=== PATIENT | female | born 1955 | race Caucasian/White ===

== ENCOUNTER 2020-03-06 18:36 | Inpatient (IN) | payer BC, OTHER ==
[~2020-03-06] VITALS: Ht 152.4 cm; Wt 43.0 kg
[2020-03-06 18:39] VITALS: BP 135/76
--- NOTE | 2020-03-06 19:10 | NUR ---
pt is confused ask frequently about every min if she can have mask off.attempts to remove on her own.
[2020-03-06 19:16] LABS: ABSOLUTE NEUTROPHILS 4.7 thou/uL (1.4-8.2); BASOPHILS 0.3 % (0.0-2.0); EOSINOPHILS 0.3 % (0.0-3.0); HEMATOCRIT 35.3 % (37.0-47.0); HEMOGLOBIN 11.8 gm/dL (12.0-15.0); LYMPHOCYTES 8.4 % (24.0-44.0); MCH 31.1 pg (26.0-34.0); MCHC 33.3 g/dL (28.0-37.0); MCV 93.3 fL (80.0-100.0); PLATELET COUNT 200 thou/uL (150-400); RBC 3.79 mil/uL (4.20-5.00); RDW 15.2 % (10.5-14.5); WBC 5.6 thou/uL (4.0-11.0)
[2020-03-06 19:26] LABS: ANION GAP 6 mmol/L (7-16); APTT 27.2 Seconds (24.5-32.8); BUN 28 mg/dL (7-18); CALCIUM 8.6 mg/dL (8.5-10.1); CHLORIDE 105 mmol/L (98-107); CO2 33 mmol/L (21-32); GLUCOSE 121 mg/dL (74-106); POTASSIUM 3.3 mmol/L (3.5-5.1); PROTIME 10.5 Seconds (9.3-11.4); SODIUM 144 mmol/L (136-145)
[2020-03-06 19:31] LABS: ALBUMIN 2.7 g/dL (3.4-5.0); MAGNESIUM 1.6 mg/dL (1.8-2.4); SGOT 49 U/L (15-37); SGPT 78 U/L (30-65); TOTAL BILIRUBIN 0.5 mg/dL (0.2-1.0); TOTAL PROTEIN 5.9 g/dL (6.4-8.2); TROPONIN-I <0.06 ng/mL (<0.06)
[2020-03-06 19:37] LABS: BE(vivo) 4.9 mmol/L (-2 to +3); HCO3 29.6 mmol/L (22.0-26.0); PCO2 44.1 mmHg (35.0-45.0); PO2 71.5 mmHg (80.0-100.0); pH 7.445 (7.360-7.450); sO2 94.9 % (92.0-98.0)
[2020-03-06] MEDS ORDERED: ELIQUIS5 MG PO (21:54)
[2020-03-06] MEDS ORDERED: DECADRON6 MG PO (21:54)
[2020-03-06] MEDS ORDERED: MEMANTINE HCL10 MG PO (21:55)
[2020-03-06] MEDS ORDERED: METOPROLOL SUCC50 MG PO (21:55)
[2020-03-06] MEDS ORDERED: MELATONIN5 MG SUBLING (21:55)
[2020-03-06 21:56] LABS: URINE BILIRUBIN NEGATIVE (Negative); URINE BLOOD TRACE (Negative); URINE CLARITY CLEAR; URINE COLOR YELLOW; URINE GLUCOSE-RANDOM* NEGATIVE (Negative); URINE KETONES NEGATIVE (Negative); URINE LEUKOCYTES-REFLEX 2+ (Negative); URINE NITRITE-REFLEX POSITIVE (Negative); URINE PROTEIN (DIPSTICK) NEGATIVE (Negative); URINE SPECIFIC GRAVITY 1.015 (1.005-1.035)
[2020-03-06] MEDS ORDERED: PEPCID20 MG PO (21:56)
[2020-03-06] MEDS ORDERED: GALZIN50 MG PO (21:57)
[2020-03-06] MEDS ORDERED: GEODON40 MG PO (21:57)
[2020-03-06] MEDS ORDERED: TYLENOL325 M1 PO (21:58)
[2020-03-06] MEDS ORDERED: AMIODARONE HCL400 MG PO (21:58)
[2020-03-06] MEDS ORDERED: VITAMIN B-1100 M2 PO (21:59)
[2020-03-06] MEDS ORDERED: BUSPIRONE HCL15 MG PO (21:59)
[2020-03-06] MEDS ORDERED: VITAMIN C500 M2 PO (21:59)
[2020-03-06] MEDS ORDERED: BAYER CHEWABLE81 MG PO (21:59)
[2020-03-06] MEDS ORDERED: CLARITIN10 M3 PO (22:00)
[2020-03-06] MEDS ORDERED: CELEXA 20 MG TA20 MG PO (22:00)
[2020-03-06 22:09] VITALS: BP 144/83
[2020-03-06 22:15] LABS: BACTERIA-REFLEX >30 Many /HPF (None Seen); CASTS None Seen /LPF (None Seen); CRYSTALS None Seen /LPF (None Seen); SQUAMOUS 0-3 Few /LPF (0-3); URINE RBC 0-2 Rare /HPF (0-2); URINE WBC-REFLEX 6-15 Few /HPF (0-5)
[2020-03-06 22:20] VITALS: BP 136/78
--- NOTE | 2020-03-07 02:42 | NUR ---
CONTINUES TO GET OXYGEN OFF. DROPS INTO THE 80'S WITHOUT THE O2. HIGH 94% ON THE OXYGEN. SHE IS PULLING AT ALL MEDICAL DEVICES. BILATERAL SOFT RESTRAINTS PLACED FOR SAFETY. ORIENTED TO ROOM AND SURROUNDINGS. SHE IS CONFUSED AND IS ORIENTED TO PERSON AND PLACE ONLY. CAREPLAN STARTED. DENIES PAIN
--- NOTE | 2020-03-07 04:04 | NUR ---
COVID TEST POSITIVE FROM 03/06/20. REPORT BY NATALIE IN LAB
[2020-03-07 05:21] LABS: HEMATOCRIT 36.5 % (37.0-47.0); MCH 30.8 pg (26.0-34.0); MCHC 32.8 g/dL (28.0-37.0); MCV 93.8 fL (80.0-100.0); RBC 3.89 mil/uL (4.20-5.00); RDW 15.2 % (10.5-14.5); WBC 4.2 thou/uL (4.0-11.0)
[2020-03-07 05:31] LABS: CALCIUM 8.1 mg/dL (8.5-10.1); CREATININE 0.8 mg/dL (0.6-1.0); POTASSIUM 3.6 mmol/L (3.5-5.1)
--- NOTE | 2020-03-07 06:50 | NUR ---
KEEPING O2 ON THIS AM AT 12 LITERS HFC. LOW 90'S. O2 SAT. RESTING QUIETLY AT THIS TIME.
[2020-03-07 07:21] VITALS: BP 123/761
--- NOTE | 2020-03-07 09:38 | EKG ---
[facility] [place] [address] ELECTROCARDIOGRAM REPORT Name: KIM LE Room #: 351- ADM IN M.R.#: [id number] Admission: 03/06/20 Attend Phys: Jacoby West Discharge: Date of : 51 Report #: [id number] THIS REPORT FOR: cc: Nicole Angel,Nicole Nieto,Angel Linder MD ~ THIS REPORT FOR: //name// [facility] ED Test Date: 2020-03-06 Test Time: 19:34:56 Pat Name: KIM LE Department: Room: [facility] Gender: F Radio/Tv Technician: : 1955 Requested By: Doug Carlson Order Number: [id number] MD: Angel Mendez Measurements Intervals [place] Rate: 162 P: [place]: QRS: -34 QRSD: 93 T: 133 QT: 289 QTc: 475 Interpretive Statements Sinus rhythm Left axis deviation Nonspecific T abnrm, anterolateral leads No previous ECG available for comparison Electronically Signed On 03-07-2020 9:38:50 CDT by Angel Mendez [email or web address] <ELECTRONICALLY SIGNED> By: Angel Mendez MD 03/07/2038 33 33 Angel Mendez MD /EPI
[2020-03-07 10:59] VITALS: BP 125/65
--- NOTE | 2020-03-07 11:57 | HC ---
[facility] [address] [address] CONSULTATION Name: KIM LE Room #: 351- ADM IN M.R.#: [id number] Admission: 03/06/20 Attend Phys: Jacoby West Discharge: Date of : 51 Report #: [id number] THIS REPORT FOR: cc: Nicole Angel,Nicole Hurley,Jackson Elam MD ~ DATE OF SERVICE: 03/07/2020 INFECTIOUS DISEASE CONSULTATION ATTENDING PHYSICIAN: Jacoby West MD REASON FOR EVALUATION: COVID-19 infection complicated by pneumonitis and respiratory failure. HISTORY OF PRESENT ILLNESS: Chart reviewed, the patient examined. This is a 64-year-old woman with extensive significant medical history given her age; does have some degree of dementia as well as vasculopathy, I suspect COPD as well, who was admitted from the facility with complaints of positive COVID-19 testing. On arrival apparently, she was on room air. She has clinically worsened, now is on significant supportive oxygen. She is quite lethargic. She is unable to give any significant details of her history, has been started empirically on vancomycin and Levaquin. Urinalysis did show 16-25 white cells as well. She has apparently been taking off her oxygen. ALLERGIES: LISTED TO PENICILLINS AND MORPHINE. CURRENT MEDICATIONS: Include levofloxacin, enoxaparin, vancomycin, famotidine, dexamethasone, furosemide, Haldol, albuterol, p.r.n. analgesics and antiemetics. PAST MEDICAL HISTORY: As described above. Does have history of anxiety, depression, hypertension, obstructive sleep apnea, coronary artery disease; has cardiomyopathy, paroxysmal atrial fibrillation, post-AICD. SOCIAL HISTORY: Smokes cigarettes. FAMILY HISTORY: Noncontributory. REVIEW OF SYSTEMS: Not reliably obtained. PHYSICAL EXAMINATION: GENERAL: She is chronically ill appearing, undernourished, quite somnolent at this point, appears to be in moderate distress. VITAL SIGNS: Temperature 97.6, pulse 60, respirations 20, blood pressure is [facility] [address] [place] [address] CONSULTATION Name: KIM LE Room #: [facility] IN ..#: [id number] Admission: 03/06/20 Attend Phys: Jacoby West Discharge: Date of : 51 Report #: [id number]. SKIN: Warm, dry, no rashes. HEENT: Has nasal cannula oxygen in place. NECK: Supple. LUNGS: Scattered coarse breath sounds. HEART: Distant, regular, may have a soft systolic murmur. ABDOMEN: Soft, nontender, nondistended. EXTREMITIES: No cyanosis. GENITOURINARY: Deferred. RECTAL: Deferred. LABORATORY DATA: Blood cultures are sterile thus far. Troponin less than 0.06. Electrolytes from this morning; sodium 145, potassium 3.6, chloride 103, bicarbonate is 33, anion gap of 9, BUN and creatinine 19 and 0.8, estimated GFR of 72. CBC: White count of 4.2, H and H 12.0 and 36.5, platelets of 205. Coronavirus testing was positive. Procalcitonin of less than 0.05. Urinalysis; 6-15 white cells. Influenza antigen was negative. ProBNP elevated at 5559. Chest x-ray; moderate diffuse infiltrates; there is a question of edema. Liver function tests were otherwise unremarkable. Albumin of 2.7, total protein 5.9. ASSESSMENT: COVID-19 infection. There is significant disease burden. I think she would be a candidate for the antiviral remdesivir, consider convalescent plasma as well. We will add vitamins. She appears quite tenuous at this point and I think fairly profoundly undernourished. Overall, prognosis appears guarded. <ELECTRONICALLY SIGNED> By: Jackson Okeefe MD 03/07/20 1157 1028 1142 Jackson Okeefe MD /nt
[2020-03-07 16:47] VITALS: BP 121/69
--- NOTE | 2020-03-07 18:10 | NUR ---
ASSUMED PATIENT CARE AT 0700. AWAKE. CONFUSED AND RESTLESS PUT O2 OFF. ON RESTRAINT. OPTIFLOW 55L 75% WITH CONTINUE PULSE OX 92%. DESAT WITH EXERTION. 4300ML URINE OUTPUT. VSS. SLOWLY TOWARDS POC GOALS.
[2020-03-07 19:50] VITALS: BP 110/63
--- NOTE | 2020-03-08 04:34 | NUR ---
O2 SAT MID 90'S 0N OPTIFLOW 55 LITERS 75%. PULL OFF O2 FREQUENTLY POSSIBLE. HALDOL GIVEN X2 TIS SHIFT. EFFECTIVE FOR CONTROL OF BEHAVIOR.
[2020-03-08 05:51] VITALS: BP 106/63
[2020-03-08 07:29] VITALS: BP 117/72
[2020-03-08 07:34] LABS: ABSOLUTE NEUTROPHILS 8.6 thou/uL (1.4-8.2); BASOPHILS 0.1 % (0.0-2.0); HEMATOCRIT 40.8 % (37.0-47.0); HEMOGLOBIN 13.4 gm/dL (12.0-15.0); LYMPHOCYTES 6.4 % (24.0-44.0); MCH 30.5 pg (26.0-34.0); MCHC 32.8 g/dL (28.0-37.0); MONOCYTES 6.6 % (1.0-8.0); PLATELET COUNT 257 thou/uL (150-400); POLYS 86.9 % (36.0-66.0); RBC 4.38 mil/uL (4.20-5.00); RDW 15.6 % (10.5-14.5); WBC 9.9 thou/uL (4.0-11.0)
[2020-03-08 11:13] VITALS: BP 125/70
[2020-03-08 13:26] LABS: ALBUMIN 2.8 g/dL (3.4-5.0); CREATININE 0.6 mg/dL (0.6-1.0); DIRECT BILIRUBIN 0.1 mg/dL (<0.1-0.2); TOTAL BILIRUBIN 0.8 mg/dL (0.2-1.0); TOTAL PROTEIN 5.7 g/dL (6.4-8.2)
[2020-03-08 15:18] VITALS: BP 111/67
[2020-03-08 15:56] VITALS: BP 139/73
[2020-03-08 17:30] LABS: ABSOLUTE NEUTROPHILS 11.1 thou/uL (1.4-8.2); BASOPHILS 0.6 % (0.0-2.0); HEMATOCRIT 39.9 % (37.0-47.0); HEMOGLOBIN 12.9 gm/dL (12.0-15.0); LYMPHOCYTES 2.4 % (24.0-44.0); MCH 30.3 pg (26.0-34.0); MCHC 32.3 g/dL (28.0-37.0); MCV 94.1 fL (80.0-100.0); MONOCYTES 3.4 % (1.0-8.0); PLATELET COUNT 325 thou/uL (150-400); POLYS 93.6 % (36.0-66.0); RBC 4.24 mil/uL (4.20-5.00); RDW 15.4 % (10.5-14.5); WBC 11.9 thou/uL (4.0-11.0)
[2020-03-08 17:40] LABS: CALCIUM 8.7 mg/dL (8.5-10.1); POTASSIUM 3.2 mmol/L (3.5-5.1)
--- NOTE | 2020-03-08 19:10 | NUR ---
ASSUMED PATIENT CARE AT 0700. AWAKE. ON OPTLOW 55L/75%. PATIENT STILL PULL OFF O2 TUBE. ON RESTRAINT. TOLERATED NECTOR LIQUID AND PUDDING. VSS. WILL KEEP MONITOR.
[2020-03-08 19:47] VITALS: BP 131/72
[2020-03-09 04:49] VITALS: BP 134/70
--- NOTE | 2020-03-09 05:35 | NUR ---
Pt. very anxious at beginning of shift. Keeps taking off Optiflow despite being in soft restraint. Reposition prn and pt. frequently reoriented. Haldol prn given with some help. Slept intermittently during the night. O2 sat in the low to mid 90's when awake and anxious then mid to upper 90's when sleeping and calm. Cont. on enhanced precaution , afebrile. Bed alarm on for safety.
[2020-03-09 06:49] LABS: ALBUMIN 2.5 g/dL (3.4-5.0); CREATININE 0.8 mg/dL (0.6-1.0); DIRECT BILIRUBIN 0.2 mg/dL (<0.1-0.2); TOTAL BILIRUBIN 0.6 mg/dL (0.2-1.0); TOTAL PROTEIN 5.5 g/dL (6.4-8.2)
[2020-03-09 08:45] VITALS: BP 115/69
[2020-03-09 11:26] VITALS: BP 146/78
[2020-03-09 11:48] LABS: MAGNESIUM 1.8 mg/dL (1.8-2.4)
[2020-03-09 14:59] VITALS: BP 127/71
--- NOTE | 2020-03-09 18:13 | NUR ---
PT CARE ASSUMED AT 0700, UP START OF MY SHIFT, PT SEEMED CALM, ALERT TO SELF, ABLE TO FOLLWO IMPLE COMMANDS. MID SHIFT, PT BECAME MORE RESTLESS, TAKING OPTIFLOW DESPITE BILATERAL SOFT RESTRAINTS, PT REOIENTED FREQUENTLY. PT GURROLA CATHETER IN PLACE, PATENT AND SECURED. PT CALLED AND UPDATED ABOUT PT CARE, HE WANTED TO TALK TO A DOCTOR. DR. MARCELA EAST, GAVE HIM HIS NUMBER. FALL PRECAUTIONS IN PLACE. WILL CONTINUE TO [id number].
[2020-03-09 20:04] VITALS: BP 142/82
[2020-03-09 23:26] VITALS: BP 146/76
[2020-03-10 03:47] VITALS: BP 150/60
--- NOTE | 2020-03-10 05:49 | NUR ---
PT CONFUSED . ATTEMPTS TO TAKE OFF O2 . RESTRAINTS ON BILATERALLY. SHE HAS PULLED OFF O2 X2 TONIGHT. TYLENOL GIVEN FOR PAIN. SHE SLEPT WELL AFTER TYULENOL AND RT GAVE A BREATHING TREATMENT. SATS WERE 85% . O2 INCREASED PER RT AND TX GIVEN, BED DOWN CALL LIGHT IN REACH. BED ALARM ON.
[2020-03-10 06:16] LABS: HEMATOCRIT 37.6 % (37.0-47.0); HEMOGLOBIN 12.1 gm/dL (12.0-15.0); MCH 30.3 pg (26.0-34.0); MCHC 32.3 g/dL (28.0-37.0); MCV 93.9 fL (80.0-100.0); RBC 4.01 mil/uL (4.20-5.00); RDW 15.5 % (10.5-14.5); WBC 10.2 thou/uL (4.0-11.0)
[2020-03-10 06:27] LABS: CALCIUM 9.1 mg/dL (8.5-10.1); CREATININE 0.9 mg/dL (0.6-1.0)
[2020-03-10 06:31] LABS: POTASSIUM 2.7 mmol/L (3.5-5.1)
[2020-03-10 06:33] LABS: ALBUMIN 2.7 g/dL (3.4-5.0); CREATININE 0.9 mg/dL (0.6-1.0); DIRECT BILIRUBIN 0.2 mg/dL (<0.1-0.2); TOTAL BILIRUBIN 0.5 mg/dL (0.2-1.0); TOTAL PROTEIN 5.7 g/dL (6.4-8.2)
[2020-03-10 07:19] VITALS: BP 156/79
[2020-03-10 11:06] VITALS: BP 137/79
[2020-03-10 15:40] VITALS: BP 135/75
--- NOTE | 2020-03-10 16:45 | NUR ---
INITIAL ASSESSMENT: Received consult. SARAH reviewed chart and spoke with nursing and attending physician. Pt was admitted from [facility] due to COVID-19. Pt is in Enhanced Isolation. Pt is afebrile and is on optiflow. Pt is IV lasix/IV abx. Pt is completing course of Remdesivir. Pt is in restraints. SARAH spoke with pt's , Mu, via phone. Introduced role of SARAH. Pt has been at [facility] for about a month. Pt is in LTC at the facility. Pt was at [facility] prior to admission to [facility]. Pt's thinks that pt got COVID at [facility], which has many cases. Plan is for pt to return to [facility] when medically stable. SARAH updated Rhina at [facility]. Will fax clinical info for [facility] for review. Pt's spouse is requesting to speak with hospitalist and extrusion press supervisor. SARAH is following to assist as needed with discharge planning.
--- NOTE | 2020-03-10 18:16 | NUR ---
PT HAS BEED CALM SIBCE START OF SHIFT, SLEEPY BUT EASILY WOKEN UP. PT DENIES ANY PAIN, NAUSEA AND VOMITTING. PT CONTINUES TO HAVE RESTRAINT ON DUE TO MULTIPLE ATTEMPTS TO TAKE OFF HER OXYGEN. PT REORIENTED. PT ATE MOST OF MEALS TODAY. FOLET CATHETER IN PLACE AND PATENT. FALL PRECAUTIONS IN PLACE. CALLED AND UIPDATED ABOUT PT CARE. WILL CONTINUE TO MONITOR.
[2020-03-10 20:52] VITALS: BP 137/77
[2020-03-10 21:00] LABS: BE(vivo) 13.7 mmol/L (-2 to +3); HCO3 38.8 mmol/L (22.0-26.0); pH 7.508 (7.360-7.450); sO2 94.8 % (92.0-98.0)
--- NOTE | 2020-03-11 05:10 | NUR ---
PT IN RESTRAINTS SHE WILL PULL OPIFLOW OFF AND DESAT INTO 80'S. FOLLOWING POC WITH Q2 RESTRAINT CHECKS. PT SOMETIME RESTLESS AND SAYS, "I JUST WANT TO ." REDIRECT AND TELL HER ÁNGEL LOVES HER, HE CALLS TO CHECK FREQUENTLY OVER SHIFT. POC WITH IVPB ANTIBIOTICS. FALL AND ISOLATION PRECAUTIONS IN PLACE.
[2020-03-11 06:31] LABS: HEMATOCRIT 43.1 % (37.0-47.0); HEMOGLOBIN 13.7 gm/dL (12.0-15.0); MCH 30.2 pg (26.0-34.0); MCHC 31.8 g/dL (28.0-37.0); RBC 4.54 mil/uL (4.20-5.00); RDW 15.8 % (10.5-14.5); WBC 15.4 thou/uL (4.0-11.0)
[2020-03-11 06:42] LABS: CALCIUM 9.1 mg/dL (8.5-10.1); CREATININE 0.8 mg/dL (0.6-1.0); POTASSIUM 3.3 mmol/L (3.5-5.1)
[2020-03-11 06:44] LABS: ALBUMIN 2.9 g/dL (3.4-5.0); DIRECT BILIRUBIN 0.3 mg/dL (<0.1-0.2); TOTAL BILIRUBIN 0.8 mg/dL (0.2-1.0); TOTAL PROTEIN 5.9 g/dL (6.4-8.2)
[2020-03-11 07:50] VITALS: BP 145/82
[2020-03-11 11:09] VITALS: BP 140/75
--- NOTE | 2020-03-11 14:35 | NUR ---
SW reviewed chart and spoke with nursing and attending physician. Pt remains in Enhanced Isolation due to COVID-19. Pt is afebrile and requiring optiflow. Pt is on IV abx, IV lasix and IV steroids. Pt has completed course of Remdesivir. turnaround planner faxed clinical updates to [facility] for review. SARAH is following to assist as needed with discharge planning.
[2020-03-11 15:51] LABS: HCO3 38.3 mmol/L (22.0-26.0); PCO2 50.9 mmHg (35.0-45.0); PO2 70.4 mmHg (80.0-100.0); pH 7.494 (7.360-7.450); sO2 95.1 % (92.0-98.0)
[2020-03-11 15:55] VITALS: BP 137/78
--- NOTE | 2020-03-11 17:38 | NUR ---
[facility] RECEIVED CONFIRMATION AND LEFT MSG WITH PAKO IN ADM DP TO FOLLOW.
--- NOTE | 2020-03-11 18:43 | NUR ---
PT CARE ASSUMED TA 0700, PT ALERT AND ORIENTED X3, CONFUSION AT TIMES. DENIES CHEST PAIN, NAUSEA AND VOMITTING. PT WAS CALM MOST OF THE DAY, BUT TRIEND TO TAKE HER OXYGEN OFF. REORIENTED PT. PT REPOSITIONED EVERY 2 HOURS. BARELY ATE HER FOOD, FLUIDS ENCOURAGED. GURROLA CATHETER IN PLACE. FALL PREWCAUTIONS IN PLACE. CALLED AND UPDATED ABOUT CARE. WILL CONTINUE TO MONITOR.,
[2020-03-11 19:41] VITALS: BP 133/80
[2020-03-12 03:53] VITALS: BP 129/72
[2020-03-12 05:27] LABS: HCO3 33.3 mmol/L (22.0-26.0); PCO2 44.3 mmHg (35.0-45.0); PO2 62.6 mmHg (80.0-100.0); pH 7.494 (7.360-7.450); sO2 93.5 % (92.0-98.0)
[2020-03-12 06:17] LABS: HEMATOCRIT 36.8 % (37.0-47.0); MCHC 31.8 g/dL (28.0-37.0); MCV 94.4 fL (80.0-100.0); RBC 3.9 mil/uL (4.20-5.00); RDW 15.6 % (10.5-14.5); WBC 13.3 thou/uL (4.0-11.0)
[2020-03-12 06:18] LABS: HEMOGLOBIN 11.7 gm/dL (12.0-15.0)
[2020-03-12 06:31] LABS: CALCIUM 8.6 mg/dL (8.5-10.1); CREATININE 0.7 mg/dL (0.6-1.0)
[2020-03-12 06:44] LABS: POTASSIUM 2.7 mmol/L (3.5-5.1)
[2020-03-12 07:17] VITALS: BP 134/79
[2020-03-12 15:05] VITALS: BP 158/85
--- NOTE | 2020-03-12 16:10 | NUR ---
PT REMAINS RESTLESS AND CONFUSED. STILL REQUIRING HIGH O2, ON OPTIFLOW AT 50L, 60% FIO2. BILATERAL WRIST RESTRAINTS CONTINUED D/T DISCONTINUATION OF MEDICAL DEVICES. VSS. VERY POOR APPETITE. POOR ORAL INTAKE. GURROLA PATENT. K+ CRITICAL AT 2.7, REPLACED WITH 40 MEQ. RECHECK 3.6. WILL CONTINUE TO MONITOR.
[2020-03-12 19:23] VITALS: BP 153/89
[2020-03-13] VITALS (26 sets, daily range): BP systolic 97–137; BP diastolic 53–77
--- NOTE | 2020-03-13 00:27 | NUR ---
PRESSURE AREA AT UPPER LIP NOTICED BY RT. REMOVED OPTIFLOW, AND PLACED VENTI MASK AT 50%. KEEPING O2 SATS AT 96%. NO PULLING AT RESTRAINTS AT THIS TIME OR OXYGEN. REMOVED RESTRIANTS NOW. PT IS RESTING QUIETLY. HALDOL EFFECTIVE FOR CONTROL OF RESTLESSNESS.
--- NOTE | 2020-03-13 05:48 | NUR ---
RESTING QUIELTY TONIGHT. ONLY BECOMES A BIT RESTLESS WITH CARES/TREATMENTS. CONT PULSE OX, O2 LEVELS STAYING IN THE MID 90'S ON VENETI MASK AT 40%. OPTIFLOW DISCONTIUED: PLACING PRESSURE ON UPPER LIP. CONTINUES ON IV FLUIDS.
[2020-03-13 06:18] LABS: HEMATOCRIT 37.8 % (37.0-47.0); HEMOGLOBIN 12.3 gm/dL (12.0-15.0); MCH 30.8 pg (26.0-34.0); MCHC 32.6 g/dL (28.0-37.0); MCV 94.6 fL (80.0-100.0); RDW 15.3 % (10.5-14.5); WBC 12.3 thou/uL (4.0-11.0)
[2020-03-13 06:32] LABS: CALCIUM 8.7 mg/dL (8.5-10.1); CREATININE 0.6 mg/dL (0.6-1.0); POTASSIUM 3.2 mmol/L (3.5-5.1)
[2020-03-13 11:44] LABS: BE(vivo) 10.2 mmol/L (-2 to +3); HCO3 34.9 mmol/L (22.0-26.0); PCO2 46.7 mmHg (35.0-45.0); PO2 66.8 mmHg (80.0-100.0); pH 7.491 (7.360-7.450); sO2 94.4 % (92.0-98.0)
--- NOTE | 2020-03-13 12:54 | NUR ---
SARAH reviewed chart and spoke with nursing and attending physician. Pt remains in Enhanced Isolation due to COVID-19. Pt is afebrile and on IV abx. Pt is requiring ventimask. Pt may need TPN/dobhoff placed. Pt transferred to ICU earlier today. SARAH updated Rhina at [facility]. No weekend discharge planned. SARAH is following to assist as needed with discharge planning.
--- NOTE | 2020-03-13 12:56 | NUR ---
patient tolerated on vent mask. transfered patient to icu at [address] leanna rodriguez. update with .
--- NOTE | 2020-03-13 13:43 | NUR ---
PER DEPT POLICY, PT TO BE PLACED ON HOLD FROM P.T. S/P TX TO ICU PER DR. MEDRANO. REQUEST NEW P.T. ORDERS ONCE PT IS DEEMED APPROPRIATE FOR THERAPEUTIC MOBILITY.
[2020-03-13 13:54] LABS: MAGNESIUM 2.1 mg/dL (1.8-2.4); PHOSPHORUS 3.1 mg/dL (2.5-4.9)
--- NOTE | 2020-03-13 14:05 | NUR ---
chart review. cm unable to visit with terra rt on conserving ppe. no weekend dc. will cont following as needed for dc needs.
--- NOTE | 2020-03-13 14:46 | NUR ---
PT ARRIVED FROM 3W ACCOMPANIED BY NURSING STAFF. PT DROWSY, OPENS EYES TO VERBAL STIMULI. PT VERY IMPULSIVE AND CONTINUALLY PULLING VENTI MASK OFF. WHILE PT'S O2 OFF PT DESATS TO 88-89. CENTRAL LINE PLACED BY IV TEAM. DR MEDRANO CALLED AND UPDATED AT [address] DOBHOF AND PL[address] RESTRAINS GIVEN. PT HAS BEEN HEMODYNAMICALLY STABLE WHILE IN ICU. WILL CONTINUE TO MONITOR.
[2020-03-13 16:15] LABS: BE(vivo) 9.5 mmol/L (-2 to +3); HCO3 34.2 mmol/L (22.0-26.0); PCO2 46.5 mmHg (35.0-45.0); PO2 60.2 mmHg (80.0-100.0); pH 7.485 (7.360-7.450); sO2 92.6 % (92.0-98.0)
--- NOTE | 2020-03-13 21:00 | NUR ---
LATE ENTRY. 6FRTLCL PLACED RT IJ. CXR REVEALED THE TIP AT THE [facility] AT 1445 AND LINE RELEASED TO RN FOR USE.
[2020-03-14] VITALS (49 sets, daily range): BP systolic 75–140; BP diastolic 44–79
[2020-03-14 04:45] LABS: CALCIUM 8.1 mg/dL (8.5-10.1); CREATININE 0.6 mg/dL (0.6-1.0); PHOSPHORUS 2.4 mg/dL (2.5-4.9); TOTAL BILIRUBIN 0.6 mg/dL (0.2-1.0); TOTAL PROTEIN 4.6 g/dL (6.4-8.2)
[2020-03-14 04:47] LABS: POTASSIUM 2.9 mmol/L (3.5-5.1)
[2020-03-14 04:51] LABS: BE(vivo) 8.1 mmol/L (-2 to +3); HCO3 32.1 mmol/L (22.0-26.0); PCO2 42.4 mmHg (35.0-45.0); PO2 60.8 mmHg (80.0-100.0); pH 7.497 (7.360-7.450); sO2 93.1 % (92.0-98.0)
[2020-03-14 05:11] LABS: ABSOLUTE NEUTROPHILS 11.6 thou/uL (1.4-8.2); BASOPHILS 0.1 % (0.0-2.0); EOSINOPHILS 0.1 % (0.0-3.0); HEMATOCRIT 33.6 % (37.0-47.0); LYMPHOCYTES 9.1 % (24.0-44.0); MCH 30.6 pg (26.0-34.0); MCHC 32.8 g/dL (28.0-37.0); MCV 93.4 fL (80.0-100.0); MONOCYTES 7.2 % (1.0-8.0); PLATELET COUNT 269 thou/uL (150-400); POLYS 83.5 % (36.0-66.0); RBC 3.59 mil/uL (4.20-5.00); RDW 15.3 % (10.5-14.5); WBC 13.8 thou/uL (4.0-11.0)
--- NOTE | 2020-03-14 19:15 | NUR ---
Pt has dozed intermittently today. Moans and will vocalze a few words or a sentence. Sinus rhythm. Maintained NPO. Low grade temperature. Ventimask at 35%. Nasal cannula not utilized due to imparied skin intergrity under nose. and above upper lip. Catheter did leak with urine noted on pad. May require replacing cather if leaking continues. Maintained in isolation for COVID.
[2020-03-15] VITALS (25 sets, daily range): BP systolic 78–146; BP diastolic 34–83
[2020-03-15 05:16] LABS: CALCIUM 8.4 mg/dL (8.5-10.1); CREATININE 0.6 mg/dL (0.6-1.0); MAGNESIUM 2.1 mg/dL (1.8-2.4); PHOSPHORUS 2.8 mg/dL (2.5-4.9); POTASSIUM 4.1 mmol/L (3.5-5.1)
--- NOTE | 2020-03-15 08:20 | NUR ---
Pt leaking urine around catheter. Catheter removed and new 16 north korean kinney catheter inserted. Immediate return of cloudy yellow urine with sediment.
--- NOTE | 2020-03-15 19:15 | NUR ---
Pt confused throughout the day with periods of restlessness. Discussed with Dr Han that pt not currently able to take home medications due to NPO status and no feeding tube. Dr Han discussed consulting Psyc phsician. No order received. Maintained on 35% ventimask. TPN continues for nutritional support. Pt's , Mu, called in for status report. Maintained in isolation with COVID precations. Report given to RN assuming care.
[2020-03-16] VITALS (33 sets, daily range): BP systolic 81–136; BP diastolic 45–81
[2020-03-16 06:04] LABS: CALCIUM 8.2 mg/dL (8.5-10.1); CREATININE 0.5 mg/dL (0.6-1.0); MAGNESIUM 2.1 mg/dL (1.8-2.4); PHOSPHORUS 2.5 mg/dL (2.5-4.9); POTASSIUM 4.2 mmol/L (3.5-5.1)
[2020-03-16 07:35] LABS: ABSOLUTE NEUTROPHILS 12.1 thou/uL (1.4-8.2); BASOPHILS 0.2 % (0.0-2.0); HEMOGLOBIN 10.9 gm/dL (12.0-15.0); LYMPHOCYTES 7.6 % (24.0-44.0); MCH 30.1 pg (26.0-34.0); MCHC 32.1 g/dL (28.0-37.0); MONOCYTES 6.3 % (1.0-8.0); PLATELET COUNT 240 thou/uL (150-400); POLYS 85.9 % (36.0-66.0); RBC 3.62 mil/uL (4.20-5.00); WBC 14.1 thou/uL (4.0-11.0)
--- NOTE | 2020-03-16 07:46 | NUR ---
PT NOTED TO BE BLEEDING AROUND THE CHEST TUBE INSERTION SITE, DRESSING SATURATED AND CHANGED TWICE. NO CHANGE IN PT RESPIRATORY STATUS. DR MEDRANO NOTIFIED, ORDERS TO HOLD LOVENOX FOR A DAY RECEIVED, AND TO REINFORCE PRESSURE DRESSING AN NEEDED.CXR AND AM LABS TAKEN. WILL CONTINUE TO MONITOR PT.
--- NOTE | 2020-03-16 09:00 | NUR ---
ASSUMMED CARE AT 0700 THIS AM FROM NIGHT NURSE PATIENCE RN. RT CHEST TUBE DRESSING BLOODY. DR CHAUDHARY HERE AND INFORMED OF BLEEDING FROM CHEST TUBE SITE. ALSO INFORMED OF SERUM SODIUM LEVEL OF 135, AND D5W INFUSING. NO ORDERS NOTED.
--- NOTE | 2020-03-16 10:00 | NUR ---
DR LOVELL IN TO SEE PATIENT, INFORMED OF BLEEDING FROM CHEST TUBE SITE AND SERUM SODIUM. WILL PUT ORDERS IN.
--- NOTE | 2020-03-16 10:30 | NUR ---
PATIENT'S CALLED IN AND UPDATED ON PATIENT'S STATUS. PATIENT PULLING OFF O2 AND DESATING INTO THE MID 80'S. VENTIMASK INCREASED TO 50% AND SAT RETURNED TO THE MID TO LOWER 90'S. PATIENT REMAINS CONFUSED AND AGGITATED. DR LOVELL ALSO INFORMED OF BP WHEN HE ROUNDED, AND THAT HALDOL HAD BEEN GIVEN EARLIER.
--- NOTE | 2020-03-16 12:00 | NUR ---
RT CHEST TUBE DRESSING SATURATED WITH CLOTS AND BLOOD ON GOWN. EST KERI 200 ML. BP IN THE 80'S. H/H AND PT/PTT DRAWN. RESULTS PENDING. PATIENT REPOSITIONED.
--- NOTE | 2020-03-16 12:15 | NUR ---
chart review. unable to visit with terra rt [facility]erve on ppe. still requiring chest tube, tpn for nutritional needs. cm spoke with spouse lisha, still hopeful she starts to pull through, monday a better day to reach out rt off day for work. nurse said she had little improvement. thank you for calling per lisha. will cont following as needed for dc needs.
[2020-03-16 12:19] LABS: HEMATOCRIT 33.9 % (37.0-47.0); HEMOGLOBIN 11.2 gm/dL (12.0-15.0)
[2020-03-16 12:36] LABS: APTT 27.4 Seconds (24.5-32.8)
--- NOTE | 2020-03-16 16:23 | NUR ---
CHEST TUBE DRESSING IS DRY AND INTACT. H/H STABLE. OCC SITTING UP IN BED, WILL ANSWER SIMPLE QUESTIONS CONCERNING PAIN BUT WILL NOT FOLLOW ANY COMMANDS. MONITOR SR IN THE 80'S WITH OCC PVC NOTED. BP IMPROVED WITH MEAN ARTERIAL PRESSURE GREATER THAN 60. URINE OUTPUT GREATER THAN 50 ML/HR. REMAINS NPO. REASSURANCE GIVEN TO PATIENT. FENTANYL GIVEN FOR PAIN SLEEPING AT INTERVALS.
--- NOTE | 2020-03-16 17:45 | NUR ---
SPOKE WITH PATIENT'S BY PHONE. UPDATED ON 'S STATUS AND REASSURANCE GIVEN. PATIENT HAS INTERMITTENT BRIEF PERIODS WHERE SHE WILL RESPOND TO SIMPLE QUESTIONS, BUT THEN IS RESTLESS A FEW MINUTES LATER, UNCOOPERATIVE. CHEST TUBE DRESSING IS C/D/I. O2 REMAINS AT 50% SHE WILL TAKE O2 OFF AND DESATES INTO THE MID 80'S. SLOWLY PROGRESSING TOWARDS OUTCOME GOALS.
[2020-03-17] VITALS (32 sets, daily range): BP systolic 71–125; BP diastolic 37–72
[2020-03-17 04:43] LABS: BE(vivo) -0.4 mmol/L (-2 to +3); HCO3 23.5 mmol/L (22.0-26.0); PCO2 35.6 mmHg (35.0-45.0); PO2 98.5 mmHg (80.0-100.0); pH 7.437 (7.360-7.450); sO2 97.7 % (92.0-98.0)
[2020-03-17 05:34] LABS: ABSOLUTE NEUTROPHILS 15.3 thou/uL (1.4-8.2); BASOPHILS 0.1 % (0.0-2.0); HEMATOCRIT 28.9 % (37.0-47.0); HEMOGLOBIN 9.4 gm/dL (12.0-15.0); MCH 30.3 pg (26.0-34.0); MCHC 32.4 g/dL (28.0-37.0); MCV 93.7 fL (80.0-100.0); MONOCYTES 6.6 % (1.0-8.0); PLATELET COUNT 231 thou/uL (150-400); POLYS 86.3 % (36.0-66.0); RBC 3.09 mil/uL (4.20-5.00); WBC 17.7 thou/uL (4.0-11.0)
[2020-03-17 05:44] LABS: ALBUMIN 1.9 g/dL (3.4-5.0); CALCIUM 7.9 mg/dL (8.5-10.1); CREATININE 0.6 mg/dL (0.6-1.0); MAGNESIUM 2.1 mg/dL (1.8-2.4); PHOSPHORUS 2.9 mg/dL (2.5-4.9); POTASSIUM 4.9 mmol/L (3.5-5.1); TOTAL BILIRUBIN 0.4 mg/dL (0.2-1.0); TOTAL PROTEIN 4.5 g/dL (6.4-8.2)
--- NOTE | 2020-03-17 05:56 | NUR ---
This RN to beside at 1900 last evening. Patient remained on 15L & 50% on the venturi mask all night. Vital signs stable. Patient restless throughout night and is only alert to self. One PRN dose of haldol was given. Right chest tube put on 30mL last night. No tidaling or air leak, dressing clean dry and intact. Restraints in place. Strict NPO. Patient still requiring heavy monitoring and is therefore not progressing towards goals.
--- NOTE | 2020-03-17 09:20 | NUR ---
BP LOW, SEE VSS. DR. DELACRUZ HERE. ORDERS GIVEN. NS FLUID BOLUS STARTED. MD STATES TO NOFIFY DR. LOVELL IF BP DOES NOT COME UP AND POSSIBLY START DOPAMINE. WILL CONTINUE TO MONITOR.
--- NOTE | 2020-03-17 09:30 | NUR ---
DR. LOVELL HERE. UPDATE GIVEN. MD WILL TALK TO PT FAMILY REGARDING CODE STATUS.
--- NOTE | 2020-03-17 10:01 | NUR ---
DR. CHAUDHARY HERE. UPDATE GIVEN. REPORTED LOW URINE OUTPUT AND HYPOTENSION. FLUID BOLUS IN PROGRESS. ORDERS GIVEN.
--- NOTE | 2020-03-17 12:00 | NUR ---
cm notified by bedside nurse that lisha say doesnt have code to get information and wanted cm to reach out to spouse. cm passed on that would call spouse after cm has meeting today.
--- NOTE | 2020-03-17 15:04 | NUR ---
[facility] SPOKE WITH SIMEON IN ADM SHE RECEIVED UPDATE. DP TO FOLLOW.
--- NOTE | 2020-03-17 16:21 | NUR ---
[facility] SPOKE WITH PAKO IN ADM SHE RECEIVED UPDATE.
--- NOTE | 2020-03-17 17:10 | NUR ---
Pt down to 35%. Tolorating well. Remains NPO. Agitated most of the time. Haldol x 1 this am. Fentanyl x 1. Hypotensive this am, fluid bolus and albumin given with good results. Urine output better now ? blockage this am.
[2020-03-18] VITALS (21 sets, daily range): BP systolic 85–125; BP diastolic 37–66
[2020-03-18 05:49] LABS: CALCIUM 8.3 mg/dL (8.5-10.1); CREATININE 0.6 mg/dL (0.6-1.0); MAGNESIUM 1.8 mg/dL (1.8-2.4); PHOSPHORUS 3.1 mg/dL (2.5-4.9); POTASSIUM 4.8 mmol/L (3.5-5.1)
--- NOTE | 2020-03-18 06:30 | NUR ---
NO RESTLESS EPISODES NOTED THIS SHIFT, OCCASIONALLY INTERACTS WITH NURSING. DOES NOT FOLLOW COMMANDS, INTERMITTENTLY ANSWERS QUESTIONS IN A WAY THAT IS UNDERSTANDABLE, WORDS ARE GARBLED.
--- NOTE | 2020-03-18 14:00 | NUR ---
LEFT MESSAGE WTIH PT . I KEEP MISSING HIS CALL. AWAITING CALL BACK.
--- NOTE | 2020-03-18 14:33 | NUR ---
PT CRAWLING OUT OF BED, UNDISTINQUISABLE WORDS. SOME WORDS MAKING SENSE BUT NOT FOLLOWING ANY COMMANDS.
--- NOTE | 2020-03-18 18:17 | NUR ---
PT CURRENTLY ON ROOM AIR. RESTING POST FENTANYL. + LIQUID STOOLS. WILL PUT RECTAL TUBE IN NEXT TIME. RECTAL TUBE PLACED. CHEST TUBE TO WATER SEAL.
[2020-03-19] VITALS (34 sets, daily range): BP systolic 78–121; BP diastolic 37–74
--- NOTE | 2020-03-19 08:55 | NUR ---
report received from ARLEEN Russell at shift change. received n-95 mask for provision of pt care. Dr. Sim present.
--- NOTE | 2020-03-19 18:45 | NUR ---
ROOM AIR, RESTRAINTS DC'D. FENTANYL IV GIVEN X 1 FOR RESTLESSNESS, DISCOMFORT TODAY. DR. CHAUDHARY PRESENT. DC'D R PCT WITH DRESSING OF OIL EMULSION GUAZE, 4X4'S AND SURGICAL FOAM TAPE APPLIED. DR. CHAUDHARY DETERMINED, PT DOESN'T NEED TO BE NPO. SPEECH PRESENT, PERFORMED SWALLOW STUDY, DIET ORDERED. AT 1650, REPORT GIVEN TO ARLEEN ARDON RECEIVING UPON PT TRANSFER TO FLOOR. AT 1815, RETURNED CALL- TO ÁNGEL MIMI, . UPDATED ON PT STATUS/PROGRESS AND HER TRANSFER TO ROOM 360. PT PARTIALLY REMOVED/LOOSENED RIJ TRIPLE LUMEN DRESSING. DRESSING REAPPLIED. HAD LARGE STOOL, CLEANED. TRANSFERRED IN BED WITH CAPTURE MANAGER AND O2 TO ROOM 360.
[2020-03-20 04:46] VITALS: BP 100/71
[2020-03-20 06:01] LABS: CALCIUM 8.2 mg/dL (8.5-10.1); CREATININE 0.5 mg/dL (0.6-1.0); MAGNESIUM 1.9 mg/dL (1.8-2.4); PHOSPHORUS 3.1 mg/dL (2.5-4.9); POTASSIUM 4.1 mmol/L (3.5-5.1)
--- NOTE | 2020-03-20 06:35 | NUR ---
PT TRANSFERRED BACK TO 3w FROM ICU. RESTRAINTS IN PLACE PT WILL REMOVE TELE, OXYGEN, AND PULL AT PICC. PT HAS HEALING WOUND ON UPPER LIP. PT POSITIVE FOR COVID. FOLLOWING POC WITH TPN, IVPB ANTIBIOTICS AND ASORBIC ACID. VSS OVERNIGHT.
[2020-03-20 08:39] VITALS: BP 123/40
[2020-03-20 11:20] VITALS: BP 101/44
--- NOTE | 2020-03-20 14:11 | NUR ---
SARAH reviewed chart and spoke with nursing and attending physician. Pt remains in Enhanced Isolation due to COVID-19. Pt was transferred to 3W from ICU. Pt is in restraints due to pulling at her lines. Pt is on TPN. No weekend discharge anticipated. SARAH spoke with pt's spouse, Mu, to provide update. Mu is hoping pt will be ready to discharge back to [facility] next week. SARAH provided update to Rhina at [facility]. Will fax clinical/therapy updates to the facility on Monday for review. PT/OT to be reordered when pt is able to participate. SARAH is following to assist as needed with discharge planning.
[2020-03-20 15:19] VITALS: BP 112/59
--- NOTE | 2020-03-20 18:32 | NUR ---
ASSUMED PATIENT CARE AT 0700. AWAKE. POOR APPETITE. RESTLESS. ON RESTRAINT. TOLERTAED ON RA. 96% ON RA. SOLWLY TOWARDS POC GOALS.
[2020-03-20 19:34] VITALS: BP 128/72
[2020-03-21 04:14] VITALS: BP 127/68
[2020-03-21 08:06] VITALS: BP 139/69
[2020-03-21 10:38] LABS: ALBUMIN 2.4 g/dL (3.4-5.0); CALCIUM 8.7 mg/dL (8.5-10.1); CREATININE 0.6 mg/dL (0.6-1.0); MAGNESIUM 1.7 mg/dL (1.8-2.4); PHOSPHORUS 3.6 mg/dL (2.5-4.9); POTASSIUM 4.8 mmol/L (3.5-5.1)
[2020-03-21 11:49] VITALS: BP 111/53
[2020-03-21 15:50] VITALS: BP 117/59
--- NOTE | 2020-03-21 19:21 | NUR ---
RN ASSUMED PT'S CARE AT 0700AM, PT KNOWS HER NAME AND BIRTHDAY, PT CAN FOLLOW SOME COMMANDS, BUT PT IS CONFUSED , SHE STILL TRY TO REMOVE LINES AND GETS OUT HER BED, PT IS ON BOTH WRIST RESTRAINTS, PT HAS POOR EATING AND DRINKING, PT IS CONTINUING TPN AT 65ML/HR, PT'S VS ARE STABLE.
[2020-03-21 20:48] VITALS: BP 132/70
[2020-03-22 04:00] VITALS: BP 94/50
[2020-03-22 06:04] LABS: ABSOLUTE NEUTROPHILS 13.3 thou/uL (1.4-8.2); BASOPHILS 0.1 % (0.0-2.0); HEMOGLOBIN 9.1 gm/dL (12.0-15.0); LYMPHOCYTES 6.7 % (24.0-44.0); MCH 30.8 pg (26.0-34.0); MCHC 32.7 g/dL (28.0-37.0); MCV 94.4 fL (80.0-100.0); MONOCYTES 6.4 % (1.0-8.0); PLATELET COUNT 229 thou/uL (150-400); POLYS 86.8 % (36.0-66.0); RBC 2.97 mil/uL (4.20-5.00); RDW 15.5 % (10.5-14.5); WBC 15.3 thou/uL (4.0-11.0)
[2020-03-22 06:28] LABS: CALCIUM 8.1 mg/dL (8.5-10.1); CREATININE 0.6 mg/dL (0.6-1.0); MAGNESIUM 1.7 mg/dL (1.8-2.4); PHOSPHORUS 3.9 mg/dL (2.5-4.9); POTASSIUM 4.8 mmol/L (3.5-5.1)
[2020-03-22 07:29] VITALS: BP 101/59
[2020-03-22 11:26] VITALS: BP 91/57
[2020-03-22 15:16] VITALS: BP 94/56
--- NOTE | 2020-03-22 18:32 | NUR ---
RN ASSUMED PT'S CARE AT 0700AM, PT IS DRWSY , BUT PT STILL IS CONFUSED AND TRY TO GET OUT HER BED , SHE IS ON BOTH WRIST RESTRAINTS, PT EATS POOR AND PT IS CONTINUING TPN AT 65ML/HR,PT NEEDS HELP ADL AND CHANGE POSITION , PT'S VS ARE STABLE, PT IS ON ISOLATION FOR POSITIVE COVID.
[2020-03-22 20:08] VITALS: BP 116/43
[2020-03-23 05:40] VITALS: BP 116/56
--- NOTE | 2020-03-23 08:00 | NUR ---
Pt. able to state her name otherwise very confused. She does follow some commands. She slept intermittently during the night and continously talking when awake. Bilateral soft wrist restraints in place to prevent pt. from pulling lines. TPN infusing per right IJ. Dressing intact on right lateral area ( Chest tube site). Cont. on enhanced precaution , afebrile. Tolerating room air well with O2 sat up to 100%. Took meds with yoghurt which she likes. Incontinent of bladder and bowel ,total bed change done. Female ext. cath in place. Protective barrier to buttocks after each incontinence.
[2020-03-23 08:15] VITALS: BP 96/52
[2020-03-23 12:15] VITALS: BP 96/50
[2020-03-23 15:49] VITALS: BP 114/64
--- NOTE | 2020-03-23 16:13 | NUR ---
SARAH reviewed chart and spoke with nursing and attending physician. Pt remains in Enhanced Isolation due to COVID-19. Pt is afebrile and not requiring O2. Pt is on IV steroids and TPN. Pt is in restraints due to pulling at lines. SARAH faxed clinical/thearpy updates to [facility] for review. Notified Rhina in admissions. Discharge is anticipated in 1-2 days if pt can be out of restraints and starts eating. SARAH spoke with pt's spouse via phone to provide update. Pt's spouse is agreeable with the plan. SW is following to assist as needed with discharge planning.
[2020-03-23 16:15] VITALS: BP 114/64
--- NOTE | 2020-03-23 18:32 | NUR ---
PT CARE ASSUMED AT 0700. ASSESSMENTS CHARTED, MEDICATION CHARTED. RIJ 3L WITH TPN RUNNING AT [address] LOVELL; STOPPING AT 1999. PACEMAKER/AICD. BILAT WRIST RESTRAINTS ORDER PER DR LOVELL; HE WOULD LIKE TO TEST HER WITHOUT THEM WHILE OTHERS ARE IN THE ROOM. DOESN'T STAND AT ALL; WILL SIT ON EDGE OF BED WITH ASSISTANCE. EXTERNAL CATHETER.
[2020-03-23 21:40] VITALS: BP 114/74
[2020-03-24 04:15] VITALS: BP 111/68
[2020-03-24 07:35] VITALS: BP 92/53
--- NOTE | 2020-03-24 07:40 | NUR ---
Pt. remains very confused and oriented to her name only. She didn't sleep much last night and constantly talking to herself. She has been repositioned and protective barrier applied to her buttocks after each incontinence.TPN dc'd at as ordered. Gave HS med with yoghurt wich she likes. She also was given apple sauce and pudding when she stated she's hungry. Cont. on enhanced precaution,afebrile. Alexander. soft wrist restraints to prevent pt. from pulling lines. Bed alarm on for safety and SCD's in place. called last night to get an update on pt.
[2020-03-24 11:04] VITALS: BP 93/39
--- NOTE | 2020-03-24 13:33 | NUR ---
SARAH reviewed chart and spoke with nursing and attending physician. Pt remains in Enhanced Isolation due to COVID-19. Pt is afebrile and not requiring O2. Pt's TPN was discontinued last night. Pt was not taken out of restraints as planned. Restraints removed this morning. Discharge to [facility] is anticipated for tomorrow. SARAH updated Rhina at [facility]. SARAH spoke with pt's spouse, Mu, via phone to provide update and notify of anticipated discharge. Mu is aware and in agreement with plan. SARAH is following to assist as needed with discharge planning.
[2020-03-24 15:12] VITALS: BP 97/55
[2020-03-24 19:13] VITALS: BP 99/43
[2020-03-25 04:41] VITALS: BP 109/66
--- NOTE | 2020-03-25 05:47 | NUR ---
Pt. has been very confused, impulsive and attempted to get out of bed multiple times at beginning of shift. Haldol 2.5mg IV given last night and didn't start sleeping till after MN. She slept well till about 0430 then another dose of haldol given again this am due to being agitated , has periods of hallucination and paranoia. Cont. on enhanced precaution , afebrile.Tolerating room air well. Incontinent of bladder , moisture barrier to buttocks after each incontinence. Pt. ate 6 yoghurts and 2 applesauce during the night which she likes. called last night to get an update on pt.
[2020-03-25 08:00] VITALS: BP 107/60
[2020-03-25 11:00] VITALS: BP 112/48
[2020-03-25 13:19] LABS: HEMATOCRIT 28.9 % (37.0-47.0); HEMOGLOBIN 9.6 gm/dL (12.0-15.0); MCH 31.4 pg (26.0-34.0); MCV 95.2 fL (80.0-100.0); PLATELET COUNT 202 thou/uL (150-400); RBC 3.04 mil/uL (4.20-5.00); RDW 16.6 % (10.5-14.5); WBC 12.6 thou/uL (4.0-11.0)
[2020-03-25 13:40] LABS: CALCIUM 8.5 mg/dL (8.5-10.1); CREATININE 0.7 mg/dL (0.6-1.0); POTASSIUM 4.4 mmol/L (3.5-5.1)
[2020-03-25 14:10] LABS: ABSOLUTE NEUTROPHILS 10.3 thou/uL (1.4-8.2); ANISOCYTOSIS 1+
--- NOTE | 2020-03-25 14:38 | NUR ---
SARAH reviewed chart and spoke with nursing and attending physicain. Pt remains in Enhanced Isolation due to COVID-19. Pt is afebrile and not requiring O2. Pt has been out of restraints for 24 hours. Pt is medically stable for discharge back to [facility] today. SARAH contacted Rhina in admissions at [facility], who states she submitted for insurance authorization this morning. Awaiting input from insurance at this time. Chart copy requested. SARAH is following to assist as needed with discharge planning.
[2020-03-25 15:18] VITALS: BP 99/41
--- NOTE | 2020-03-25 17:03 | NUR ---
ASSUMED CARE AT SHIFT CHANGE. PT A/O X 1, ABLE TO ANSWER SOME QUESTIONS APPROPRIATELY AND FOLLOW COMMANDS. PT CALM THIS SHIFT.ON RA, NO DISTRESS NOTED . CLEANED UP FROM BM X 2 TODAY. VSS THROUGHOUT SHIFT. EATING WELL WITH ASSISTANCE. SPOUSE, ÁNGEL, UPDATED TODAY X 2 ABOUT PLAN TO DC- AWAITING INSURANCE AUTH. WILL CONT TO MONITOR AND FOLLOW POC.
[2020-03-25 19:37] VITALS: BP 128/68
[2020-03-26 03:41] VITALS: BP 110/79
--- NOTE | 2020-03-26 03:52 | NUR ---
PATIENT ASSESSED AND IS ALERT X1 PERSON, NAME AND DATE. SKIN WARM AND DRY. RESP EVEN AND UNLABORED.D TAKES REGULAR NECTAR THICKEN FLUIDS. IS A FEEDER. PATIENT GETS AGITATED AND TRIES TO GET OUT OF BED, LUNGS DISM TO CTA. NO EDEMA NOTED. TELE- SHOWS SR WITH PVC. NO RESTRAINTS NEEDED THIS SHIFT. HALDOL GIVEN X1. MEDS CRUSHED IN APPLESAUSE. RIGHT OJ FLUSHES WELL. SCD'S ON. DRESSING DRY TO RIGHT SIDE OF CHEST. BRUISES ON ARMS AND LEGS. SCAB UNDER HER NOSE. RESTING AT PRESENT TIME. CONT PLAN OF CARE. NO AGITATED AT PRESENT TIME.
[2020-03-26 07:24] VITALS: BP 116/58
[2020-03-26 11:25] VITALS: BP 111/69
[2020-03-26 15:27] VITALS: BP 105/65
--- NOTE | 2020-03-26 16:06 | NUR ---
DISCHARGE NOTE: SARAH reviewed chart and spoke with nursing and attending physician. Enhanced Isolation precautions have been discontinued per forger helper. Pt is afebrile and not requiring O2. Pt is medically stable for discharge back to [facility]. SARAH discussed case with Rhina in admissions at [facility], who states they are still waiting on insurance authorization for pt to return skilled. Discussed with UR RN, who provided Rhina with the [employer] contact. Rhina arranged w/c van transportation for 1600. SARAH notified attending physician, who finalized discharge orders/summary. SARAH faxed to facility and confirmed info was received. SARAH spoke with pt's spouse via phone to inform of discharge. Mu is aware and agreeable with plan. Lengthy discussion with pt's spouse regarding pt's hospital course. Chart copied. Nursing provided with number to call report. No additional SW needs identified at this time, but is available to assist should needs arise.
--- NOTE | 2020-03-26 16:55 | NUR ---
RN ASSUMED PT'S CARE AT 0700AM, PT KNOWS HER NAME , BUT PT IS CONFUSED, PT CANNOT FOLLOW COMMANDS, PT 'S VS ARE STABLE, PT'S COVID IOSLATON WAS OFF PER ORDER, PT NEEDS HELP MEALS AND ADL. PT DC TO [facility] AT 1640PM, RN HAS GIVING REPORT, PT'S HAS NOTIFIED.
== END 2020-03-26 16:40 | DRG 871 ==
LOC: ER 18:36 → 3W 21:19 → EROBS 21:19 → ICU 21:19 → 3W 22:28 → ICU 03-13 12:34 → 3W 03-19 18:45
PROVIDERS: Emergency Medicine; Internal Medicine; Internal Medicine Pulmonary Disease; Nurse Practitioner Adult Health; Nurse Practitioner Family; Pediatrics; Specialist; ADMIT Hospitalist; ATTEND Hospitalist
PROC: XW033E5 Introduction of Remdesivir Anti-infective into Peripheral Vein, Percutaneous Approach, New Technology Group 5 (ICD-10-PCS; 2020-03-07)
PROC: 0W9930Z Drainage of Right Pleural Cavity with Drainage Device, Percutaneous Approach (ICD-10-PCS; principal; 2020-03-13)
PROC: 02HV33Z Insertion of Infusion Device into Superior Vena Cava, Percutaneous Approach (ICD-10-PCS; 2020-03-13)
DX: A41.89 Other specified sepsis (principal); U07.1 COVID-19; J96.01 Acute respiratory failure with hypoxia; I50.23 Acute on chronic systolic (congestive) heart failure; G92 Toxic encephalopathy; J12.89 Other viral pneumonia; J96.02 Acute respiratory failure with hypercapnia; E43 Unspecified severe protein-calorie malnutrition; I48.20 Chronic atrial fibrillation, unspecified; J93.9 Pneumothorax, unspecified; Z16.12 Extended spectrum beta lactamase (ESBL) resistance; I42.9 Cardiomyopathy, unspecified; F03.91 Unspecified dementia, unspecified severity, with behavioral disturbance; E87.0 Hyperosmolality and hypernatremia; E87.3 Alkalosis; J93.83 Other pneumothorax; Z68.1 Body mass index [BMI] 19.9 or less, adult; N30.00 Acute cystitis without hematuria; E83.42 Hypomagnesemia; R04.0 Epistaxis; E88.09 Other disorders of plasma-protein metabolism, not elsewhere classified; B96.20 Unspecified Escherichia coli [E. coli] as the cause of diseases classified elsewhere; F41.9 Anxiety disorder, unspecified; F32.9 Major depressive disorder, single episode, unspecified; G47.33 Obstructive sleep apnea (adult) (pediatric); I25.10 Atherosclerotic heart disease of native coronary artery without angina pectoris; I48.0 Paroxysmal atrial fibrillation; I11.0 Hypertensive heart disease with heart failure; I95.9 Hypotension, unspecified; Z66 Do not resuscitate; Z79.01 Long term (current) use of anticoagulants; Z79.82 Long term (current) use of aspirin; Z79.899 Other long term (current) drug therapy; Z88.0 Allergy status to penicillin; Z88.5 Allergy status to narcotic agent; Z95.810 Presence of automatic (implantable) cardiac defibrillator; Z23 Encounter for immunization
CPT/HCPCS: 10078; 10203; 10879

== ENCOUNTER 2020-04-06 16:54 | Emergency (ER) | payer BC, OTHER ==
[~2020-04-06] VITALS: Ht 162.6 cm; Wt 54.4 kg
[~2020-04-06 16:54] MED LIST: AMIODARONE HCL400 MG PO; BAYER CHEWABLE81 MG PO; BUSPIRONE HCL15 MG PO; CELEXA 20 MG TA20 MG PO; CLARITIN10 M3 PO; DECADRON6 MG PO; ELIQUIS5 MG PO; GALZIN50 MG PO; GEODON40 MG PO; MELATONIN5 MG SUBLING; MEMANTINE HCL10 MG PO; METOPROLOL SUCC50 MG PO; PEPCID20 MG PO; TYLENOL325 M1 PO; VITAMIN B-1100 M2 PO; VITAMIN C500 M2 PO
[2020-04-06 17:33] LABS: BASOPHILS 0.7 % (0.0-2.0); EOSINOPHILS 1.7 % (0.0-3.0); HEMATOCRIT 31.1 % (37.0-47.0); HEMOGLOBIN 10.5 gm/dL (12.0-15.0); LYMPHOCYTES 15.1 % (24.0-44.0); MCH 32.5 pg (26.0-34.0); MCHC 33.8 g/dL (28.0-37.0); MCV 96.3 fL (80.0-100.0); MONOCYTES 7.9 % (1.0-8.0); PLATELET COUNT 204 thou/uL (150-400); POLYS 74.6 % (36.0-66.0); RBC 3.23 mil/uL (4.20-5.00); RDW 16.1 % (10.5-14.5); WBC 6.7 thou/uL (4.0-11.0)
[2020-04-06 17:37] LABS: CALCIUM 8.6 mg/dL (8.5-10.1); CREATININE 0.7 mg/dL (0.6-1.0); POTASSIUM 3.7 mmol/L (3.5-5.1)
[2020-04-06 19:45] LABS: URINE BILIRUBIN NEGATIVE (Negative); URINE BLOOD TRACE (Negative); URINE COLOR YELLOW; URINE GLUCOSE-RANDOM* NEGATIVE (Negative); URINE KETONES TRACE (Negative); URINE PROTEIN (DIPSTICK) TRACE (Negative); URINE SPECIFIC GRAVITY 1.025 (1.005-1.035); URINE UROBILINOGEN 0.2 E.U./dl (0.2-1.0)
[2020-04-06 19:48] LABS: URINE CLARITY HAZY; URINE LEUKOCYTES-REFLEX 3+ (Negative); URINE NITRITE-REFLEX POSITIVE (Negative)
[2020-04-06] MEDS ORDERED: KEFLEX500 M1 PO (19:54)
[2020-04-06 20:04] LABS: SQUAMOUS 0-3 Few /LPF (0-3)
[2020-04-06 20:06] LABS: BACTERIA-REFLEX >30 Many /HPF (None Seen); CASTS None Seen /LPF (None Seen); URINE RBC 0-2 Rare /HPF (0-2)
[2020-04-06 20:07] LABS: CRYSTALS None Seen /LPF (None Seen); YEAST-REFLEX Present (None Seen)
[2020-04-06 22:48] VITALS: BP 107/67
== END 2020-04-07 00:36 ==
LOC: ER 16:54
PROVIDERS: Emergency Medicine
DX: R41.82 Altered mental status, unspecified (principal); N39.0 Urinary tract infection, site not specified; I10 Essential (primary) hypertension; I25.10 Atherosclerotic heart disease of native coronary artery without angina pectoris; F17.210 Nicotine dependence, cigarettes, uncomplicated; Z79.899 Other long term (current) drug therapy; Z79.82 Long term (current) use of aspirin; Z88.0 Allergy status to penicillin; Z88.5 Allergy status to narcotic agent

== ENCOUNTER 2020-04-21 13:21 | Inpatient (IN) | payer OTHER, BC ==
[~2020-04-21] VITALS: Ht 152.4 cm; Wt 48.6 kg
[~2020-04-21 13:21] MED LIST changes: +KEFLEX500 M1 PO
[2020-04-21 13:22] VITALS: BP 140/81
[2020-04-21 14:52] LABS: BASOPHILS 0.2 % (0.0-2.0); EOSINOPHILS 0.3 % (0.0-3.0); HEMATOCRIT 29.3 % (37.0-47.0); HEMOGLOBIN 9.2 gm/dL (12.0-15.0); LYMPHOCYTES 10.7 % (24.0-44.0); MCH 29.9 pg (26.0-34.0); MCHC 31.5 g/dL (28.0-37.0); MONOCYTES 5.9 % (1.0-8.0); PLATELET COUNT 443 thou/uL (150-400); POLYS 82.9 % (36.0-66.0); RBC 3.09 mil/uL (4.20-5.00); RDW 16.3 % (10.5-14.5); WBC 14.4 thou/uL (4.0-11.0)
[2020-04-21 15:11] LABS: ALBUMIN 1.7 g/dL (3.4-5.0); CALCIUM 8.6 mg/dL (8.5-10.1); CREATININE 0.6 mg/dL (0.6-1.0); DIRECT BILIRUBIN 0.1 mg/dL (<0.1-0.2); TOTAL BILIRUBIN 0.4 mg/dL (0.2-1.0); TOTAL PROTEIN 4.7 g/dL (6.4-8.2)
[2020-04-21 15:21] LABS: POTASSIUM 2.7 mmol/L (3.5-5.1)
[2020-04-21 17:15] VITALS: BP 132/87
[2020-04-21 18:08] VITALS: BP 130/67
[2020-04-21 18:19] VITALS: BP 138/67
[2020-04-21 19:42] VITALS: BP 147/86
--- NOTE | 2020-04-22 02:03 | NUR ---
Assumed pt care at 1900. Pt's alert to self,confused,irritable and combative with cares. VSS. Incontinent of B&B. Has a stage 4 sacral decub and upper/mid back abrasions,woundcare/pics taken w/o problems. Per Mu pt was able to ambulate w/RW before being covid positive but been WC bound afterwards. Meds administered crushed in icecream w/o problems,IVF infusing via RUE w/o problems. Fall precautions in place,will continue to monitro pt.
[2020-04-22 04:44] VITALS: BP 119/71
[2020-04-22 05:46] LABS: HEMATOCRIT 26.9 % (37.0-47.0); HEMOGLOBIN 8.7 gm/dL (12.0-15.0); MCH 30.8 pg (26.0-34.0); MCHC 32.5 g/dL (28.0-37.0); MCV 94.9 fL (80.0-100.0); RBC 2.83 mil/uL (4.20-5.00); RDW 16.4 % (10.5-14.5); WBC 10.8 thou/uL (4.0-11.0)
[2020-04-22 05:56] LABS: CALCIUM 7.9 mg/dL (8.5-10.1); CREATININE 0.4 mg/dL (0.6-1.0)
[2020-04-22 06:09] LABS: POTASSIUM 2.3 mmol/L (3.5-5.1)
[2020-04-22 07:45] VITALS: BP 124/86
--- NOTE | 2020-04-22 10:45 | NUR ---
Case opened to follow for dc planning. Phlebotomy Support Tech spoke with the pt's spouse Mu as well as the liason from [facility] where she is a prison care resident. The pt is known to cm from a previous admission in February and dc in March back to SNF at [facility]. The pt was dc'd back under her skilled rehab benefits with [employer] for approx 2 wks before transitioning back to ltc. The pt admits now with an infected stg iv pressure ulcer. Wound care/sugery consult is pending. Pt's spouse indicates he is upset with the [facility] and has concerns about her returning there. He reports that they contacted him yesterday and suggested hospice care vs agg tx. He went to see her and was "shocked" at her decline. He reports poor communication from the [facility] and did not know she was dc'd from therapy and [employer] skilled benefits two weeks ago. Support provided. Phlebotomy Support Tech encouraged him to talk with the attending and wound care to better understand her current condition and discuss plan of care as well as to arrange a meeting with the DON and admin at facility to address his concerns. He works fulltime and is not able to take the pt home and provide 24hr care. Therapy evals are pending. Message sent to both Wound Care and the attending to contact him to discuss her plan of care. He is agreeable to keeping [facility] in the loop and they are holding her bed. Dc mission planner to fax updates to their admissions dept. He is hopeful she can regain her strength, eat better, heal her wound and be up walking with a rwalker again. He was able to acknowledge noted decline since her illness with Covid in the fall. [facility] is still restricting visitors due to the pandemic. He is planning to be here most of the day tomorrow at bedside. Will follow. Support provided and cm role reviewed. Will follow.
[2020-04-22 13:57] VITALS: BP 114/61
[2020-04-22 15:00] VITALS: BP 129/77
--- NOTE | 2020-04-22 15:43 | NUR ---
PT A&OX1, VSS, PAIN AT COCCYX. PAIN MEDICATION GIVEN. DECUB ULCER COCCYX, DRESSING APPLIED, AWAITING WOUND ORDERS. ASSESSMENT COMPLETED, MEDS GIVEN ORDERED. PATIENT EAT MODERATE. AFEBRILE. EXORIATION UPPER BACK. PT AND OT IN TO EVALUATE. NO SIGNS OF DISTRESS. WILL CONTINUE TO MONITOR
--- NOTE | 2020-04-22 16:49 | NUR ---
FAXED CLINICAL UPDATE TO [facility] RECEIVED CONFIRMATION AND LEFT MSG WITH PAKO IN ADM. DP TO FOLLOW.
[2020-04-22 19:34] VITALS: BP 112/54
[2020-04-23 07:21] VITALS: BP 132/67
--- NOTE | 2020-04-23 08:11 | NUR ---
Assumed pt care at 1900. Alert to self,confused and yelling out loud frequently. Pt gets combative/agitated with cares medicated per EMAR with relief noted. Grounds Maintenance Worker spoke with spouse at for updates,he stated he would visit pt today. Pt is incontinent of B&B frequently;pericare done PRN and wound care done twice this shift. Pt has IVF infusing via [facility]IV[facility]. Fall precautions in place.
--- NOTE | 2020-04-23 10:52 | HC ---
[facility] [place] [address] CONSULTATION Name: KIM LE Room #: 461-P ADM IN M.R.#: [id number] Admission: 04/21/20 Attend Phys: Nuno Carr MD Discharge: Date of : 51 Report #: [id number] THIS REPORT FOR: cc: Nicole Angel,Nicole Hurley,Jackson Elam MD ~ DATE OF SERVICE: 04/22/2020 INFECTIOUS DISEASE CONSULTATION ATTENDING PHYSICIAN: Dr. Carr. REASON FOR EVALUATION: Sacral coccygeal decubitus ulcer, stage IV, complicated by infection. HISTORY OF PRESENT ILLNESS: Chart reviewed, patient examined. This is a 64-year-old woman with extensive medical history who was actually hospitalized within the last 6 weeks with COVID-19 infection, complicated by pneumonitis. She does have a significant medical history including pretty profound dementia. She has known vasculopathy, coronary artery disease, some anxiety and depression. She is undernourished as well. Apparently, she has had a longstanding decubitus ulcer. This was apparently worsening. I do not have whole lot of details. She is unable to give us much outside with the record suggests she was referred from the facility. Initial chest x-ray actually showed some improvement from previous. Lactic acid was 1.8. She was mildly anemic. CRP elevated at 113.7. Sed rate was only 30. Blood cultures sterile thus far. She does have a wound care and a surgical evaluation pending. She is empirically started on cefepime and vancomycin. ALLERGIES: LISTED TO PENICILLINS, MORPHINE. CURRENT MEDICATIONS: Include memantine, citalopram, metoprolol, cefepime, famotidine, buspirone, ziprasidone, vancomycin, p.r.n. analgesics and antiemetics. PAST MEDICAL HISTORY: As described above, dementia, history of hypertension, obstructive sleep apnea, coronary artery disease with a dilated cardiomyopathy, paroxysmal atrial fibrillation, status post AICD; a recent history of COVID-19 infection with pneumonitis. SOCIAL HISTORY: Unknown. FAMILY HISTORY: Noncontributory. [facility] [address] [place] [address] CONSULTATION Name: KIM LE Room #: 461-P [facility] IN ..#: [id number] Admission: 04/21/20 Attend Phys: Nuno Carr MD Discharge: Date of : 51 Report #: [id number] REVIEW OF SYSTEMS: Otherwise, unreliable. PHYSICAL EXAMINATION: GENERAL: She appears chronically ill, undernourished, [id number] distress. VITAL SIGNS: Temperature 98.1, pulse 77, respirations 18, blood pressure 124/86. SKIN: Warm, dry, no rashes. HEENT: Normocephalic. Extraocular muscles intact. NECK: Supple. LUNGS: Diminished breath sounds. Occasional crackle. HEART: Regular, occasional ectopy, do not appreciate a murmur. ABDOMEN: Soft, nontender. Sacral decubitus ulcer was examined, stage IV, has got a significant undermining around most of the primary of the wound. There is moderate degree of inflammation noted. There is no overt purulence. I do not see an exposed bone actually. There was no particular odor, clear loss of subcutaneous tissue attributable to significant malnutrition, difficult to appreciate that she did not appear to have significant pain. GENITOURINARY AND RECTAL: Deferred. LABORATORY DATA: As described above. Blood cultures sterile thus far. Electrolytes: Sodium 145, potassium 2.3, chloride 109, bicarbonate is 30, anion gap of 6, BUN and creatinine 10 and 0.4, glucose of 77. CBC: White count 10.8, H and H 8.7 and 26.9, platelets of 385. Sed rate of 30. CRP 113.7. Lactic acid 1.8. Hepatic profile was unremarkable with the exception of albumin 1.7, total protein 4.7. ASSESSMENT AND PLAN: Stage IV sacral decubitus ulcer colonized versus infected. We will continue empiric therapy. Certainly we will have to work at the margins. Limiting factor I think is profound malnutrition, not sure if she can effectively offload. At this point, continue wound care as prescribed and agree with evaluation. At this point, I do not see any exposed bone and certainly cannot exclude osteomyelitis. Continue imaging. We will defer to surgery and wound care. Encourage p.o. intake. Monitor expectantly. Certainly at risk for nosocomial related infectious complications. <ELECTRONICALLY SIGNED> By: Jackson Okeefe MD 04/23/20 [id number] Jackson Okeefe MD /nt
--- NOTE | 2020-04-23 12:15 | NUR ---
Spouse to spend time visiting with the pt today and decide on plan of care; hospice/dnr or surgery for diverting ostomy/peg. [facility]. Palliative care and the attending both have had extensive conversation with pt's spouse regarding options/plan of care. Will follow.
--- NOTE | 2020-04-23 13:37 | NUR ---
ASSUMED PT CARE THIS AM. PT VSS, ALERT TO SELF. PT COMBATIVE AND IMPULSIVE THIS MORNING. WENT TO GIVE AM MEDS AND PT REFUSED THE MAJORITY OF THEM. WOUND DRESSING CHANGED, NO PAIN REPORTED FROM PT. IV PATENT. AT BEDSIDE, ENCOURAGING PT TO COOPERATE WITH STAFF. PT HAD A BATH AND A COMPLETE BED CHANGE THIS AM. RESTING WELL AT THE MOMENT.
[2020-04-23 15:06] VITALS: BP 129/59
--- NOTE | 2020-04-24 03:48 | NUR ---
PATIENT AOX1 CONFUSED AND FORGETFUL. PATIENT HAS A SACRUM WOUND, CLEANSED WITH NS, PAT DRY, PACKED WITH DAKINS GAUZE AND ABD. WOUND IS PINK IN COLOR, MINIMUM DRAINAGE, NO S/S OF INFECTION.PATIENT INCONTINENT PERICARE AND BARRIER CREAM APPLIED NEEDED. SCD ON. PATIENT VANCO TROUGH WAS 7 PAHRMACY ADJUSTED DOSE. FALL PRECAUTION IN PLACE. PATIENT IN BED ASLEEP AT THIS TIME BREATHING REGULAR AND UNLABOURED.
[2020-04-24 05:59] LABS: HEMATOCRIT 27.5 % (37.0-47.0); HEMOGLOBIN 9.1 gm/dL (12.0-15.0); MCH 31.1 pg (26.0-34.0); MCHC 32.9 g/dL (28.0-37.0); MCV 94.6 fL (80.0-100.0); RBC 2.91 mil/uL (4.20-5.00); RDW 16.8 % (10.5-14.5); WBC 10.9 thou/uL (4.0-11.0)
[2020-04-24 06:24] LABS: CREATININE 0.5 mg/dL (0.6-1.0); MAGNESIUM 1.6 mg/dL (1.8-2.4)
[2020-04-24 06:30] LABS: POTASSIUM 2.9 mmol/L (3.5-5.1)
[2020-04-24 07:45] VITALS: BP 132/82
[2020-04-24 08:00] VITALS: BP 132/82
--- NOTE | 2020-04-24 14:33 | NUR ---
cm notified by hospitalist that he has spoken with spouse lisha and [facility]hosp[facility]. cm called and spoke with lisha via phone call. cm education on sending referral to hospice house ." oh no hold on, i have idea for comfort. i just have to write it down and then discuss with family. she will not be going back to [facility] ever again"/ lisha. cm education on home with hospice, " no referral can be sent, i told dr freire care here at hospital. i might be about to talk with family monday or monday."/lisha. sotero passed on information to hospitalist. no anticipate dc over weekend. will cont following as needed for dc needs.
--- NOTE | 2020-04-24 16:31 | NUR ---
FAXED CLINICAL UPDATE TO [facility] RECEIVED CONFIRMATION AND LEFT MSG WITH PAKO IN ADM.
[2020-04-24 19:44] VITALS: BP 115/71
--- NOTE | 2020-04-24 22:26 | NUR ---
ASSUMED CARE OF PT AT 0700. PT IS A&OX1, PT YELLING LOUDLY, HITTING, BITING, SPITTING AT STAFF IN AM. ORDERS OBTAINED FOR HALDOL AND WAS ADMINISTERED, PT CALM BUT APPROPRIATELY RESPONSIVE ON REASSESSMENT. GURROLA CATHETER ORDER OBTAINED AND PLACED DUE TO LARGE SACRAL WOUND. WOUND DRESSING CHANGED PER ORDERS. PT TURNED Q2H. SPOUSE AT THE BEDSIDE MOST OF SHIFT. SPOUSE EXPRESSED CONCERN THAT "EVERYONE WANTS TO JUST LET HER ". SPOUSE EXPRESSED CONCERN WITH HOSPICE AND LTC OPTIONS. SPOUSE ENCOURAGED TO ASSIST PATIENT WITH PO INTAKE. INCREASED PO INTAKE THIS AFTERNOON. PT CALM AND RESTFUL WITH SPOUSE AT BEDSIDE AND IS ABLE TO HAVE APPROPRIATE CONVERSATIONS. DR MONROE ON UNIT THIS EVENING AND FURTHER DISCUSSED CONCERNS ABOUT HOSPICE AND OTHER CONCERNS, SPOUSE TEARFUL AND GRIEVING AT THE BEDSIDE. FALL PRECAUTIONS IN PLACE. NURSING WILL CONTINUE TO MONITOR.
--- NOTE | 2020-04-25 02:49 | NUR ---
PT CARE ASSUMED WITH AT BEDSIDE OF PT.PT IS A/O TO SELF.PT IS CONFUSE AND AGITATING AND GIVEN PRN HALDOL .PT HAS A 4TH STAGE COCCYX WOUND ULCER AND DRESSING DONE DURING SHIFT.PT HAS GURROLA CATHETER IN PLACE.WILL CONTINUE TO MONITOR POC
[2020-04-25 05:23] LABS: HEMATOCRIT 28.5 % (37.0-47.0); HEMOGLOBIN 9.1 gm/dL (12.0-15.0); MCV 93.8 fL (80.0-100.0); RBC 3.04 mil/uL (4.20-5.00); RDW 16.4 % (10.5-14.5); WBC 11.4 thou/uL (4.0-11.0)
[2020-04-25 05:31] LABS: CALCIUM 8.1 mg/dL (8.5-10.1); CREATININE 0.5 mg/dL (0.6-1.0); POTASSIUM 3.7 mmol/L (3.5-5.1)
[2020-04-25 07:26] VITALS: BP 138/64
--- NOTE | 2020-04-25 10:07 | NUR ---
SPOKE WITH DR QUINONES GAVE VANCO TROUGH THAT WAS DRAWN THIS AM WAS 19 H HE STATED TO CONTINUE VANCO ORDERED NOTIFIED PHARMACY ALSO AT THIS TIME.
[2020-04-25 14:11] VITALS: BP 130/83
[2020-04-25 19:39] VITALS: BP 116/75
[2020-04-26 03:45] VITALS: BP 129/80
[2020-04-26 04:53] LABS: HEMATOCRIT 27.2 % (37.0-47.0); HEMOGLOBIN 8.9 gm/dL (12.0-15.0); MCH 30.7 pg (26.0-34.0); MCHC 32.6 g/dL (28.0-37.0); MCV 94.2 fL (80.0-100.0); RBC 2.89 mil/uL (4.20-5.00); RDW 17.3 % (10.5-14.5); WBC 10.4 thou/uL (4.0-11.0)
[2020-04-26 05:07] LABS: CALCIUM 8.2 mg/dL (8.5-10.1); CREATININE 0.4 mg/dL (0.6-1.0); MAGNESIUM 2.1 mg/dL (1.8-2.4); POTASSIUM 3.8 mmol/L (3.5-5.1)
--- NOTE | 2020-04-26 06:36 | NUR ---
PATIENT ALERT AND ORIENTED X1. CONFUSED AND NOT FOLLOWING INSTRUCTIONS VERY WELL. IVPB'S INFUSED W/O COMPLICATION. BS MONITORED PER ORDER. GURROLA TO D/D WITH YELLOW URINE. DRESSING TO SACRAL WOUNDS DRY AND INTACT. WILL MONITOR.
[2020-04-26 07:25] VITALS: BP 138/79
--- NOTE | 2020-04-26 09:36 | NUR ---
PATIENT ATE 95 % OF BREAKFAST WITH SET-UP. RESTING IN BED. GAVE PRN TYLENOL.
[2020-04-26 16:20] VITALS: BP 123/72
[2020-04-26 19:20] VITALS: BP 120/69
[2020-04-27 03:42] LABS: HEMATOCRIT 25.6 % (37.0-47.0); HEMOGLOBIN 8.3 gm/dL (12.0-15.0); MCH 30.7 pg (26.0-34.0); MCHC 32.6 g/dL (28.0-37.0); MCV 94.1 fL (80.0-100.0); RBC 2.72 mil/uL (4.20-5.00); RDW 16.9 % (10.5-14.5); WBC 9.9 thou/uL (4.0-11.0)
--- NOTE | 2020-04-27 04:00 | NUR ---
PATIENT ALERT AND ORIENTED X1. AGITATED AT SHIFT CHANGE, HOWEVER, SHE FELL ASLEEP AND HAS RESTED THROUGHOUT THE NIGHT. GURROLA TO D/D WITH CLEAR YELLOW URINE. IVPB INFUSED W/O COMPLICATION. DR. RUSHING TO SEE PATIENT TODAY REGARDING COLOSTOMY/PEG TUBE POSSIBILITY. DENIES PAIN, NO S/S. WILL MONITOR.
[2020-04-27 04:17] LABS: CALCIUM 8.2 mg/dL (8.5-10.1); CREATININE 0.6 mg/dL (0.6-1.0); MAGNESIUM 1.8 mg/dL (1.8-2.4); POTASSIUM 3.8 mmol/L (3.5-5.1)
[2020-04-27 07:25] VITALS: BP 126/71
--- NOTE | 2020-04-27 09:46 | 2DMMODE ---
[facility] [place] [address] 2 D/M-MODE ECHOCARDIOGRAM Name: KIM LE Room #: 440-P ADM IN M.R.#: [id number] Admission: 04/21/20 Attend Phys: Nuno Carr MD Discharge: Date of : 51 Report #: [id number] THIS REPORT FOR: cc: Nicole Angel,Deion Urias MD [facility] ~ APPROVED REPORT Study performed: 04/27/2020 08:58:13 EXAM: Comprehensive 2D, Doppler, and color-flow Echocardiogram Patient Location: Bedside Room #: 440 Status: routine BSA: 1.43 HR: 66 bpm BP: 126/91 mmHg Rhythm: Sinus arrhythmia Other Information Study Quality: Adequate Indications Cardiac clearance. Hx: ICD, CAD, CHF, Afib, COVID-19. 2D Dimensions RVDd: 39.56 mm IVSd: 9.97 (7-11mm) LVOT Diam: 20.65 (18-24mm) LVDd: 55.38 mm PWd: 10.40 (7-11mm) LVDs: 45.00 (25-40mm) Aortic Root: 34.97 mm Volumes Left Atrial Volume (Systole) Single Plane 4CH: 59.41 mL Single Plane 2CH: 54.07 mL LA ESV Index: 41.00 mL/m2 Aortic Valve AoV Peak Markus.: 1.47 m/s AO Peak Gr.: 8.59 mmHg LVOT Max P.26 mmHg LVOT Max V: 0.75 m/s DONAVAN Vmax: 1.72 cm2 [facility] [address] [place] [address] 2 D/M-MODE ECHOCARDIOGRAM Name: KIM LE Room #: 440-P [facility]#: [id number] Admission: 04/21/20 Attend Phys: Nuno Carr MD Discharge: Date of : 51 Report #: [id number] Mitral Valve E/A Ratio: 0.7 MV Decel. Time: 250.54 ms MV E Max Markus.: 0.49 m/s MV A Markus.: 0.74 m/s MV PHT: 72.66 ms IVRT: 133.79 ms Pulmonary Valve PV Peak Markus.: 1.03 m/s PV Peak Gr.: 4.27 mmHg Pulmonary Vein P Vein S: 0.66 m/s P Vein D: 0.36 m/s P Vein S/D Ratio: 1.83 Tricuspid Valve TR Peak Markus.: 2.62 m/s RAP Estimate: 5.00 mmHg TR Peak Gr.: 27.43 mmHg PA Pressure: 32.00 mmHg Left Ventricle The left ventricle is normal size. Paradoxical septal motion consistent with paced rhythm. There is normal left ventricular wall thickness. Left ventricular systolic function is moderately decreased. LVEF is 35-40%. Moderate diastolic dysfunction is present (pseudonormal filling). Right Ventricle The right ventricle is normal size. Device lead is present in the right ventricle. Atria Left atrium is moderately dilated. Right atrium is at the upper limits of normal. Aortic Valve The aortic valve is normal in structure. Trace aortic regurgitation. There is no aortic valvular stenosis. Mitral Valve Mitral valve leaflets are mildly thickened. Mild to moderate mitral regurgitation. Tricuspid Valve [facility] [address] [place] [address] 2 D/M-MODE ECHOCARDIOGRAM Name: KIM LE Room #: 440-[facility] IN M.R.#: [id number] Admission: 04/21/20 Attend Phys: Nuno Carr MD Discharge: Date of : 51 Report #: [id number] The tricuspid valve is normal in structure. Mild to moderate tricuspid regurgitation. Estimated PAP is 30-35mmHg. Pulmonic Valve The pulmonary valve is normal in structure. Mild pulmonic regurgitation. Great Vessels The aortic root is normal in size. IVC is normal in size and collapses >50% with inspiration. Pericardium There is no pericardial effusion. <Conclusion> Normal left ventricle size/wall thickness Ejection fraction 40% Moderate inferolateral hypokinesis, apex akinetic Pacer wire detected in the right ventricle Normal right ventricle size. Moderate left atrial enlargement Right atrium upper limits of normal Normal aortic valve structure and function Mild to moderate mitral valve insufficiency Mild tricuspid valve insufficiency Pulmonary artery systolic pressure estimated 35 mmHg No pericardial effusion <ELECTRONICALLY SIGNED> By: Deion Lee MD, FACC 04/27/20945 5 5 Deion Lee MD, FACC /INF
--- NOTE | 2020-04-27 10:14 | NUR ---
ASSUMED CARE AT 0700. PT IS A&O X 1. PT IS CONFUSED AND FORGETFUL. PT HAS IV ON RIGHT ARM AND IS INTACT AND SHOWS NO SIGNS OF REDNESS OR SWELLING. PT DENIES ANY PAIN, SOA, N/V.PT IS FEELING WEAK. PT IS BREATING IS ADEQUATE.FALL PRECAUTION. CALL LIGHT WITHIN REACH. PT DENIES PAIN. SCD HOSE ARE IN PLACE. WOUND CARE WAS APPLIED ON THE SACRUM WITH DAKIN MOIST, ABD AND TAPE. HEEL PROTECTOR IS IN PLACE. CALLED [employer] TO GET A HILRUB [place]. [place]. [phone]. WILL CONTINUE TO MONITOR I &O. GURROLA IN PLACE.
--- NOTE | 2020-04-27 14:17 | NUR ---
ON-GOING ASSESSMENT: CM REVIEWED CHART AND SPOKE WITH BEDSIDE RN AND ATTENDING. DISCUSSION WITH FAMILY REGARDING POSSIBLE HOSPICE VS OSTOMY/AND PEG PLACEMENT. PER SURGEON NOTE IT APPEARS THERE ARE PLANS OF OSTOMY AND DEBRIDEMENT. CM NOTIFIED BEDSIDE RN WE WILL LIKELY NEED A COVID TEST COMPLETE PRIOR TO ANY DISCHARE ARRANGEMENTS. CM FAXED UDPDATED CLINICAL TO [place]. CM WILL CONTINUE TO FOLLOW TO ASSIST NEEDED.
[2020-04-27 21:18] VITALS: BP 108/67
[2020-04-28] VITALS (9 sets, daily range): BP systolic 99–137; BP diastolic 53–97
[2020-04-28 06:01] LABS: OBSERVED RETIC COUNT 1.59 % (0.6-2.6)
[2020-04-28 06:38] LABS: % SATURATION 20 % (20-39); IRON 28 ug/dL (50-170); TIBC 143 ug/dL (250-450)
--- NOTE | 2020-04-28 07:53 | NUR ---
ASSUMED PT CARE AT SHIFT CHANGE. PT IS ALERT TO SELF AND VERY CONFUSED. PT HAS A HISTORY OF DEMENTIA. PT HAS IV IN HER RIGHT AC. PT HAS A GURROLA IN PLACE. PT PULLED PACKING OUT OF HER DRESSING RIGHT BEFORE HANDOFF. PT IS ON A LOW AIR LOSS MATTRESS. PT TOLERATES MED CRUSHED IN APPLE SAUCE. PT HAS BEEN NPO SINCE 0000. GAVE REPORT TO CONNIE (DAY RN).
--- NOTE | 2020-04-28 13:06 | NUR ---
PT WAS FOUND BY LAP GRINDER ON THE FLOOR BY THE BED WHEN SHE WENT TO TELL HER HER HAD LEFT. BED ALERM SOUNDED AND PATIENT LYING ON THE FLOOR STATING SHE WANTED HER . PT WAS ALERT AND ORIENTED TO SELF. NO APPARANT INJURY. DR. MEDRANO NOTIFIED WELL PATIENT .
--- NOTE | 2020-04-28 17:51 | NUR ---
PT ASSESSED AT START OF SHIFT. PT VERY CONFUSED AND FORGETFUL. ALL CARES EXPLAINED TO PT. REPEATS QUESTIONS FREQUENTLY. PT NPO FOR SURGERY ON SACRAL WOUND POSTPONED LATE THIS AFTERNOON UNTIL TOMORROW. IN AND TALKED W/ DR. MEDRANO AND DR. RUSHING RE PLAN OF CARE. PT SLEPT SHORT TIME THIS AFTERNOON. FALL PRECAUTIONS IN PLACE. PT ATE AND FED HERSELF DINNER. AT BEDSIDE. OR PLANNED FOR 1000 AM.
--- NOTE | 2020-04-28 20:35 | NUR ---
PT FOUND LYING ON FLOOR NEXT TO HER BED AT 0730 UNWITTNESSED BY THE MILK PASTEURIZER. PT IS VERY DEMENTED AND CONFUSED BUT ALERT. NO INJURIES NOTED. DR. MEDRANO NOTIDIED AT 0750. NOTIFIED AT 0830.
--- NOTE | 2020-04-29 03:09 | NUR ---
ASSUMED CARE OF PT AT 1900. PT IS A/O X1 AND IS CURRENTLY ON BEDREST AFTER FALLS FROM DAYSHIFT. PT APPEARS TO BE TIRED SHE HAS SLEEP MOST OF THE NIGHT. MEDICATIONS GIVEN PER MAR AT HS. DRSG TO SACRUM REMAINED C/D/I. PT HAS NOT BEEN IMPULSIVE OR HAD ANY EMOTIONAL OUTBURSTS. ROOM AIR. BP WAS LOW AT THE START OF SHIFT DOCUMENTED. GURROLA IN PLACE AND DRAINING YELLOW URINE. PT NPO SINCE MIDNIGHT AWAITING PROCEDURE TOMORROW. FALL PRECAUTIONS ARE IN PLACE, CALL LIGHT IS WITHIN REACH. WILL CONTINUE TO MONITOR.
[2020-04-29 03:35] VITALS: BP 90/44
[2020-04-29 07:30] VITALS: BP 93/61
[2020-04-29 07:41] VITALS: BP 114/61
--- NOTE | 2020-04-29 09:37 | NUR ---
PATIENT LEFT UNIT FOR PRE-OP HERE SENT TO PRE- OP WAITING ROOM. PT GIVEN METOPROL AND OLANZAPINE WITH SIPS OF WATER. DR QUINONES CALLED MESSAGE LEFT FOR VANCO TROUGH THAT WAS 21 DOES HE WANT VANCO TO INFUSE?
[2020-04-29 16:43] VITALS: BP 93/61
[2020-04-29 22:40] VITALS: BP 85/45
[2020-04-30 00:48] VITALS: BP 88/58
[2020-04-30 05:17] VITALS: BP 103/62
--- NOTE | 2020-04-30 06:10 | NUR ---
PT SLEEPING UPON SHIFT ASSESSMENT, DROWSY WHEN AWAKENED WITH VERBAL AND TACTILE STIMULATION. PT ASSESSED WITH FLACC OF 0. PT NOTED TO HAVE BP OF 85/45 AFTER MULTIPLE RECHECKS. SKIN COLOR WITHIN NORMAL LIMITS, MOUTH DRY, CIRCULATION INTACT CAPILLARY REFILL LESS THAN 3SEC IN ALL EXTREMTIES, EYES ASSESSED WITH PERRLA. TELEMARKETER ELECTRICAL JOURNEYMAN NOTIFIED, RECEIVED ORDERS FOR ONETIME IV BOLUS OF 0.9% NS 250ML. PT REASSESSED WITH BP OF 88/58, REMAINS DROWSY WHEN AWAKENED. NOTIFIED ONCALL ELECTRICAL JOURNEYMAN, RECEIVED ORDERS FOR ONETIME IV BOLUS OF 0.9% NS 250ML. PT REASSESSED WITH BP OF 103/62, PT NOTED TO STAY AWAKE AND ALERT, LETHARGIC INSTEAD OF DROWSY, VOCALIZING NEEDS. PT RESTING IN BED THROUGHOUT SHIFT, FREQUENT REPOSITIONING ENCOURAGED, LOW AIR LOSS MATTRESS REMAINS IN PLACE. PT REMAINS ON CLEAR LIQUID DIET, PO INTAKE ENCOURAGED WHILE AWAKE. PT VOIDING PER INDWELLING CATHETER, CATHETER PATENT. PT ENCOURAGED TO NOTIFY STAFF FOR ALL NEEDS, CALL LIGHT WITHIN REACH, BED ALARM ON, BED IN LOWEST POSITION, ROOM REMAINS NEAR NURSES STATION, FREQUENT MONITORING WILL CONTINUE.
--- NOTE | 2020-04-30 07:29 | NUR ---
Pt ON HOLD FOR O.T. DUE TO COLOSTOMY SURGERY. NEED NEW ORDERS WHEN/IF APPROPRIATE TO RE-START SERVICES.
--- NOTE | 2020-04-30 07:50 | EKG ---
[address] [place] [address] ELECTROCARDIOGRAM REPORT Name: KIM LE Room #: 436-P ADM IN M.R.#: [id number] Admission: 04/21/20 Attend Phys: Nuno Carr MD Discharge: Date of : 51 Report #: [id number] [facility] Test Date: 2020-04-30 Test Time: 07:47:31 Pat Name: KIM LE Department: Room: 436 P Gender: F Broacher: PIPER : 1955 Requested By: Eladia Dawkins Order Number: [id number] MD: Leonel Beckford Measurements Intervals [place] Rate: 61 P: 152 ME: 160 QRS: 204 QRSD: 117 T: 157 QT: 472 QTc: 476 Interpretive Statements Right and left arm electrode reversal, interpretation assumes no reversal Sinus rhythm Frequent premature ventricular complexes Poor R wave progression Compared to ECG 04/27/2020 07:55:45 Limb lead reversal is now present Ventricular premature complex(es) now present Electronically Signed On 04-30-2020 7:50:36 TOUR DIRECTOR by Leonel Beckford [email or web address] <ELECTRONICALLY SIGNED> By: Leonel Beckford MD, [facility] 04/30/20 0750 0747 0747 Leonel Beckford MD, [facility] /EPI
[2020-04-30 08:17] VITALS: BP 120/65
--- NOTE | 2020-04-30 10:34 | NUR ---
Assumed care of pt at 0700. Pt alert but confused. Blood noted in colostomy bag. Provider aware. Ultram ordered for pain. Ramos catheter in place. IVF discontinued. Pt's states he does not want patient to go back to [facility]. Pills given crushed in apple sauce. Fall precautions in place. Family at bedside. Will continue to monitor.
--- NOTE | 2020-04-30 11:04 | O ---
[facility] [place] [address] OPERATIVE REPORT Name: KIM LE Room #: 436-P ADM IN M.R.#: [id number] Admission: 04/21/20 Attend Phys: Nuno Carr MD Discharge: Date of : 51 Report #: [id number] THIS REPORT FOR: cc: Nicole Angel,Nicole Cheng,Adrian Donaldson MD ~ DATE OF SERVICE: 04/29/2020 PREOPERATIVE DIAGNOSIS: Sacral pressure ulcer, 12 x 10 cm. POSTOPERATIVE DIAGNOSIS: Sacral pressure ulcer, 12 x 10 cm. OPERATION: 1. Debridement of sacral pressure ulcer, 10 x 12 cm, down through bone. 2. Laparoscopic end colostomy. 3. Placement of negative pressure wound therapy device under 20 square cm. SURGEON: Adrian Gardiner MD ANESTHESIA: General. ESTIMATED BLOOD LOSS: Minimal. SPECIMENS: 1. Sacral ulcer skin. 2. Sacrum for culture and sensitivity. DESCRIPTION OF PROCEDURE: After informed consent was obtained, the patient was brought to the operating room and placed supine. SCDs were placed and working, preoperative antibiotics were administered, general anesthesia was induced. The patient was placed in the prone position. The sacral area was prepped and draped in the usual sterile fashion. This was an excisional debridement. Depth was down through the bone. 100% of the wound was debrided. Post-debridement wound area was 10 x 12 cm. I used the cautery to debride away devitalized skin around the edges of the wound. I then used a rongeur to debride away some of the exposed bone and sent it for culture. A wound VAC was then placed. A sponge was cut to approximately 10 x 12 cm. It was placed in the wound bed. Cellophane was placed over the sponge. The wound VAC was then placed on 125 mmHg suction, continuous. The patient was then placed supine on the operating table. The abdomen was prepped and draped in the usual sterile fashion. [address] [address] OPERATIVE REPORT Name: KIM LE Room #: 436-[facility] IN ..#: [id number] Admission: 04/21/20 Attend Phys: Nuno Carr MD Discharge: Date of : 51 Report #: [id number] A 5 mm incision was made in the left upper quadrant. A 5 mm trocar was placed under direct vision. Pneumoperitoneum was established. Right upper quadrant 5 mm port as well as a right lower quadrant 10 mm trocar was placed. The patient was placed in the Trendelenburg position, tilted to the right. I visualized the sigmoid colon. The lateral attachments of the sigmoid colon and left colon were taken down by incising the white line of Toldt. This was done with the LigaSure. There was excellent hemostasis. A window was then made in the mesocolon in the proximal sigmoid. I then placed a WENDY blue load stapler across this area of colon thereby transecting the colon. It was then brought up through an incision in the left lower quadrant. The trocars were then removed under direct vision. The fascia at the 10 mm port site was closed with a [id number] 0 Vicryl. Skin was closed with 4-0 Monocryl. A colostomy was then fashioned in a Melissa colostomy fashion with 4-0 Vicryl. Ostomy appliance was placed. Sterile dressings were applied. COMPLICATIONS: None. DISPOSITION: The patient was taken to recovery in satisfactory condition. <ELECTRONICALLY SIGNED> By: Adrian Gardiner MD 04/30/20 1104 1325 1420 Adrian Gardiner MD /nt
--- NOTE | 2020-04-30 12:33 | NUR ---
ON-GOING ASSESSMENT: CM REVIEWED CHART. PT HAD HER DIVERTING COLOSTOMY AND DEBRIDEMENT YESTERDAY. CM SPOKE YESTERDAY WELL TODAY TO PATIENTS ÁNGEL WHO REPORTS HE WAS NOT HAPPY AT ALL WITH [facility] WHERE PT CAME FROM AND DOES NOT WANT HER RETURNING THERE. CM DISCUSSED THAT CM CAN HELP ASSIST IN ATTEMPTS TO FINDING A NEW FACILITY BUT DISCUSSED THAT SHE WILL NEED SNF AND TRANSITION TO LTC MEDICAID PENDING AND ALOT OF LTC FACILITIES DO NOT ACCEPT MEDICAID-PENDING. BILL REACHED OUT TO [facility] AND SENT REFERRAL AND SPOKE WITH [facility] IN ADMISSIONS WHO REPORTS THEY CAN ACCEPT PATIENT TO SNF TRANSITION TO LTC MEDICAID PENDING IF IS INTERESTED. CM SPOKE WITH AND HE REPORTS HE WOULD LIKE TO LEARN MORE ABOUT FACILITY. CM REQUESTED [facility] CALL HIM. SHE REPORTS SHE FEELS THEY WOULD BEST BE ABLE TO MEET HER NEEDS AT THE [facility] LOCATION AND REPORT THAT SHE WILL CALL . CM DISCUSSED PT HAS A WOUND VAC AND SHE STATES THEY CAN MANAGE. CM WILL FAX UPDATED CLINICAL TO [facility]. BILL REACHED OT TO [facility] WHO STATES THEY DO NOT ACCEPT MEDICAID PENDING ( PT WOULD NEED SNF TRANSITION TO LTC).
[2020-04-30 19:30] VITALS: BP 95/68
--- NOTE | 2020-05-01 03:23 | NUR ---
ASSUMED CARE OF PT AT 1900. PT IS A/O X1 AND IS CURRENTLY ON BEDREST. WOUND VAC TO SACRUM IS IN PLACE AND WORKING EFFECIENTLY. COLOSTOMY IS IN PLACE AND DRAINING LIQUID STOOL BROWN AND RED. PT C/O PAIN IN LE. REFUSES TO WEAR HEEL PROTECTIVE BOOTS. SCD'S IN PLACE. PT IS GUARDING LEGS AND NOT ALLOWING THEM TO FULLY EXTEND STATING IT HURTS TO MUCH TO REST THEM DOWN ALL THE WAY. PILLOWS HAVE BEEN ADDED TO ELEVATE LEGS AND HEELS FOR COMFORT. REMAINS ON A LOW AIR LOSS MATTRESS. GURROLA IN PLACE AND DRAINING YELLOW URINE. FALL PRECAUTIONS IMPLEMENTED AND CALL LIGHT IS WITHIN REACH. PT IN ROOM NEAR NURSES STATION. WILL CONTINUE TO MONITOR.
[2020-05-01 04:05] VITALS: BP 96/57
[2020-05-01 04:58] LABS: CALCIUM 8.5 mg/dL (8.5-10.1); CREATININE 0.5 mg/dL (0.6-1.0); HEMATOCRIT 25.6 % (37.0-47.0); MCHC 31.4 g/dL (28.0-37.0); MCV 95.5 fL (80.0-100.0); POTASSIUM 4.5 mmol/L (3.5-5.1); RBC 2.68 mil/uL (4.20-5.00); RDW 17.8 % (10.5-14.5); WBC 11.8 thou/uL (4.0-11.0)
[2020-05-01 07:15] VITALS: BP 100/64
[2020-05-01] MEDS ORDERED: IRON325 PO (09:15)
[2020-05-01] MEDS ORDERED: OLANZAPINE ODT5 MG PO (09:16)
[2020-05-01] MEDS ORDERED: MIRALAX17 GM PO (09:16)
[2020-05-01] MEDS ORDERED: CEFEPIME 11 GM/50 ML IV (09:17)
[2020-05-01] MEDS ORDERED: VANCOMYCIN1 GM/2002 IV (09:18)
[2020-05-01] MEDS ORDERED: CULTURELLE KID1 EAC1 PO (09:22)
--- NOTE | 2020-05-01 10:03 | NUR ---
Assumed care of pt at 0700. Pt confused. Colostomy bag changed. Wound vac in place. IV antibiotics infusing. Midline ordered. Pt likely discharging to SNF today. Ramos catehter in place. Pain controlled with prn pain meds. Family at bedside. Fall precautions in place. Will continue to monitor.
--- NOTE | 2020-05-01 11:30 | NUR ---
ON-GOING ASSESSMENT: CM REVIEWED CHART AND SPOKE WITH BEDSIDE RN, SPOUSE ÁNGEL, WELL ATTENDING. CM SPOKE WITH PT IS STABLE TO DISCHARGE TO SNF. HE REFUSES TO SEND PATIENT BACK TO [facility]. CM DISCUSSED THAT [facility] HAS ACCEPTED PATIENT AND HAS MULTIPLE LOCATIONS. LIASON FROM [facility] STATING SHE FEELS [facility] IS THE BEST FIT PT HAS RECOVERED FROM COVID. IS AGREEABLE TO DISCHARGE TO [facility] TODAY. DISCHARGE ORDERST WERE FAXED TO [facility] CHOW AT [facility]. CM ALSO NOTIFIED HER THAT PATIENT IS NEEDING IV ANBX AND IS GETTING A MIDLINE PLACED PRIOR TO D/C. CM FAXED D/C MEDICATION LIST TO [facility] AND SHE REPORTS THEY CAN ACCOMIDATE THIS. WOUND CARE IS AWARE PT IS DISCHARGING AND REPORTS THEY CAN REMOVE HER WOUND VAC AND WILL PUT ON A WET TO DRY DRESSING AND THEN FACILITY WILL ORDER AND PLACE WOUND VAC ONCE SHE IS THERE. [facility] AT [facility] CONFIRMED THEY CAN ACCOMINDATE THIS WELL. CM AWAITING MID LINE PLACEMENT AND THEN WILL LOOK TO ARRANGE TRANSPORT VIA [facility] FROM [facility]. CM WILL CONTINUE TO FOLLOW TO ASSIST NEEDED.
--- NOTE | 2020-05-01 13:00 | NUR ---
VAT CONSULTED FOR MIDLINE PLACEMENT. 4FR SL MIDLINE PLACED IN RIGHT UPPER BASILIC VEIN, X1 ATTEMPT, DOCUMENTED, PER POLICY. RELEASED FOR USE.
[2020-05-01 16:05] VITALS: BP 105/64
--- NOTE | 2020-05-01 18:06 | PATH ---
[facility] [address] [place] [address] PATHOLOGY RPT PROCEDURE Name: KIM LE Room #: 436-P ADM IN M.R.#: [id number] Admission: 04/21/20 Date of : 51 Discharge: Report #: [id number] Path Case #: [id number] [facility] Accession Number: [id number] . 01 Material submitted: . sacrum - SACRAL DECUBITUS . 01 Clinician provided ICD-10: L89.154 E43 . 01 Clinical history: . NEED FOR COLOSTOMY, INFECTED SACRAL WOUND; STAGE 4 COCCYX PRESSURE ULCER, HYPOKALEMIA . 02 Diagnosis: Sacral decubitus, incision and drainage: - Skin and subcutaneous tissue with ulceration, fibrinoid degeneration as well as extensive acute inflammation, consistent with wound tissue. (IUV:mars; 05/01/2020) MBR 05/01/2020 1418 Local . 02 Electronically signed: . Odalys Armenta MD, Pathologist NPI- [id number] . 01 Gross description: . The specimen is received in formalin, labeled "Kim Le, sacral decubitus" and consists of an oval ulcerated segment of coker skin measuring 5.0 x 6.5 x 3.8 cm with a central large gaping through and through defect measuring 8.5 x 4.0 cm. Farm Advisor sections are submitted in A1. (SDY; 04/30/2020) SYU/SYU 04/30/2020 1613 Local . 02 Pathologist provided ICD-10: L98.499, L98.9 . 02 CPT . 761453 Specimen Comment: A courtesy copy of this report has been sent to [phone] Specimen Comment: Report sent to Performed at: [address] [id number] MD Hugo Chanel MD Phone: [phone] Performed at: 02 [facility] [address] [place] [address] PATHOLOGY RPT PROCEDURE Name: KIM LE Room #: 436-P ADM IN M.R.#: [id number] Admission: 04/21/20 Date of : 51 Discharge: Report #: [id number] Path Case #: [id number] [address] [place] [address] [id number] MD Odalys Armenta MD Phone: [phone]
--- NOTE | 2020-05-01 19:10 | HC ---
[facility] [place] [place] [address] CONSULTATION Name: KIM LE Room #: 436-P [facility] IN M.Greta.#: [id number] Admission: 04/21/20 Attend Phys: Nuno Carr MD Discharge: 05/01/20 Date of : 53 Report #: [id number] THIS REPORT FOR: cc: Nicole Angel,Nicole Chance,Kapil Romero MD ~ DATE OF SERVICE: 04/22/2020 CHIEF COMPLAINT: Sacral gluteal pressure ulceration. HISTORY OF PRESENT ILLNESS: This is a 64-year-old female patient who was admitted from a long-term care facility. She has a history of recent COVID-19 with respiratory failure and apparently in the last 30 days or so has developed ulceration to the sacral gluteal region. I have been asked to see her with regard to this. The patient is accompanied by her . She has been quite confused. She is not able to provide any information about herself. PAST MEDICAL HISTORY: Noted for history of anxiety, depression, hypertension, recent COVID-19, respiratory failure, dementia, behavioral disturbance, obstructive sleep apnea, coronary artery disease, dilated cardiomyopathy, paroxysmal atrial fibrillation, systolic heart failure, she is status post AICD placement. SOCIAL HISTORY: Negative for known alcohol use, history of some tobacco use. FAMILY HISTORY: Unknown. REVIEW OF SYSTEMS: Unobtainable. MEDICATIONS: Include apixaban, melatonin, memantine, metoprolol, famotidine, ascorbic acid, thiamine, buspirone, loratadine. PHYSICAL EXAMINATION: VITAL SIGNS: At this time include temperature 36.5, pulse 70, respiratory rate 18, blood pressure 129/77. GENERAL: This is a chronically ill-appearing female patient who appears to be mostly somnolent. HEENT: Head normocephalic. Nose and throat are clear. NECK: Supple. LUNGS: Diminished. HEART: Regular rhythm without murmur. ABDOMEN: Soft. Bowel sounds present. Sacral region demonstrates a very large sacral pressure ulcer with moderate odor and tunneling and undermining bone is palpable in the deep base. There is a moderate amount of slough and malodorous drainage. [facility] [address] [place] [address] CONSULTATION Name: KIM LE Room #: 436-P [facility] IN [facility].#: [id number] Admission: 04/21/20 Attend Phys: Nuno Carr MD Discharge: 05/01/20 Date of : 53 Report #: [id number] EXTREMITIES: Without clubbing or cyanosis. NEUROLOGIC: The patient appears to move spontaneously. Her level of orientation is not assessable. LABORATORY DATA: Include sodium 145, potassium 3.0, chloride 109, CO2 of 30, BUN 10, creatinine 0.4, glucose 77. Lactic acid 1.8, albumin is quite low at 1.7. White blood cell count 10.8 with a hemoglobin of 8.7. CLINICAL IMPRESSION: 1. Stage 4 sacral gluteal pressure ulceration that appears to be infected. 2. Advanced dementia with behavioral disturbance. 3. Stage 3 pressure ulceration of the periscapular region. 4. Boggy heels bilaterally. 5. History of hypertension and congestive heart failure. 6. History of tobacco use. 7. Severe protein-calorie malnutrition. RECOMMENDATIONS: At this point in time, we will recommend a quarter strength Dakin's moist gauze dressing to the sacral ulcer b.i.d. She will need pressure relief boots for both lower extremities. She will need a low air loss mattress q. 2 hour turning and positioning. I think it would be reasonable to consider palliative or comfort measures here. We will need to discuss further with her as his desire is for her care. If we are going to be aggressive, then I think she would require surgical debridement of the sacral ulcer, diverting colostomy and PEG tube placement. General Surgery has thus far been consulted. We will continue to follow up and have further discussion with the patient's . I appreciate being asked to see her in consultation. <ELECTRONICALLY SIGNED> By: Kapil Thomas MD 05/01/20 1910 0758 0813 Kapil Thomas MD /nt
--- NOTE | 2020-05-04 07:54 | EKG ---
[address] [address] ELECTROCARDIOGRAM REPORT Name: KIM LE Room #: 436-P [facility].#: [id number] Admission: 04/21/20 Attend Phys: Nuno Carr MD Discharge: 05/01/20 Date of : 51 Report #: [id number] 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
== END 2020-05-01 18:31 | DRG 853 ==
LOC: ER 13:21 → 4W 16:36 → 4S 16:36 → EROBS 16:36 → 4W 18:31 → 4S 04-25 18:52
PROVIDERS: Internal Medicine; Nurse Practitioner; Nurse Practitioner Family; ADMIT Hospitalist; ATTEND Hospitalist
DX: A41.9 Sepsis, unspecified organism (principal); L89.154 Pressure ulcer of sacral region, stage 4; E43 Unspecified severe protein-calorie malnutrition; G93.41 Metabolic encephalopathy; L89.103 Pressure ulcer of unspecified part of back, stage 3; I42.0 Dilated cardiomyopathy; I50.22 Chronic systolic (congestive) heart failure; F03.91 Unspecified dementia, unspecified severity, with behavioral disturbance; F41.9 Anxiety disorder, unspecified; F32.9 Major depressive disorder, single episode, unspecified; G47.33 Obstructive sleep apnea (adult) (pediatric); I48.0 Paroxysmal atrial fibrillation; E87.6 Hypokalemia; I25.10 Atherosclerotic heart disease of native coronary artery without angina pectoris; I95.9 Hypotension, unspecified; E83.42 Hypomagnesemia; I11.0 Hypertensive heart disease with heart failure; D64.9 Anemia, unspecified; Z95.810 Presence of automatic (implantable) cardiac defibrillator; Z88.6 Allergy status to analgesic agent; Z88.0 Allergy status to penicillin; Z79.01 Long term (current) use of anticoagulants; Z79.899 Other long term (current) drug therapy; Z68.20 Body mass index [BMI] 20.0-20.9, adult
CPT/HCPCS: 10045; 10100; 10102; 27000; 50010; 50101; 50366; 50386; 50403; 50555; 50558; 50643; 50739; 50740; 52265; 53307; 56462; 56525; 56526; 57092; 62110; 62900; 70005

== ENCOUNTER 2020-05-04 00:54 | Emergency (ER) | payer BC, OTHER ==
[~2020-05-04] VITALS: Ht 162.6 cm; Wt 52.2 kg
[~2020-05-04 00:54] MED LIST changes: +CEFEPIME 11 GM/50 ML IV; +CULTURELLE KID1 EAC1 PO; +IRON325 PO; +MIRALAX17 GM PO; +OLANZAPINE ODT5 MG PO; +VANCOMYCIN1 GM/2002 IV
[2020-05-04 04:30] VITALS: BP 128/76
== END 2020-05-04 04:31 ==
LOC: ER 00:54
DX: S01.511A Laceration without foreign body of lip, initial encounter (principal); S01.512A Laceration without foreign body of oral cavity, initial encounter; F32.9 Major depressive disorder, single episode, unspecified; F41.9 Anxiety disorder, unspecified; F03.90 Unspecified dementia, unspecified severity, without behavioral disturbance, psychotic disturbance, mood disturbance, and anxiety; M19.90 Unspecified osteoarthritis, unspecified site; I25.10 Atherosclerotic heart disease of native coronary artery without angina pectoris; I48.0 Paroxysmal atrial fibrillation; I11.0 Hypertensive heart disease with heart failure; I50.20 Unspecified systolic (congestive) heart failure; F17.210 Nicotine dependence, cigarettes, uncomplicated; Z79.899 Other long term (current) drug therapy; Z79.2 Long term (current) use of antibiotics; Z79.82 Long term (current) use of aspirin; Z88.5 Allergy status to narcotic agent; Z88.0 Allergy status to penicillin; W05.0XXA Fall from non-moving wheelchair, initial encounter; Y93.89 Activity, other specified; Y92.89 Other specified places as the place of occurrence of the external cause; Y99.8 Other external cause status

== ENCOUNTER 2020-05-15 11:28 | Inpatient (IN) | payer BC, OTHER ==
[~2020-05-15] VITALS: Ht 162.6 cm; Wt 47.1 kg
--- NOTE | ~2020-05-15 | EMS ---
[facility] [address] [place] [address] EMS Patient Care Report Name: KIM LE Room #: PRE MKolby#: [id number] Admission: Attend Phys: Discharge: Date of : 51 Report #: [id number] THIS REPORT FOR: //name// Report Transmitted: 05/15/2020 10:56 EMS Care Summary [place], [place]/[facility] Incident [id number] @ 05/15/2020 10:51 Incident Location [address] [place] [address] 108B Patient KIM LE Female, 64 Years 1955 Patient Address [address] [place] [address] [address] [place] [address] Patient History Congestive Heart Failure (CHF),Dementia,Gastro-Esophageal Reflux Disease (GERD),Colostomy,Novel Coronavirus (COVID-19), Patient Allergies Penicillin allergy,Morphine, Patient Medications Famotidine, Ascorbic Acid, Citalopram, Aspirin, Buspirone, Ferrous Sulfate, Apixaban, Tylenol, Chief Complaint altered mental status Disposition Transported No Lights/[place] Reason Sick Person Transported To [facility] Narrative S; 64 yo female was recently admitted to the long-term. They report she has [facility] [address] [place] [address] EMS Patient Care Report Name: KIM LE Room #: PRE ER Aleja.#: [id number] Admission: Attend Phys: Discharge: Date of : 51 Report #: [id number] been steadily declining since admission on 05/01. She hasn't been eating for the past week. The LEAD WORKER OF HOUSEKEEPING AND LAUNDRY said when she fed her yesterday she still had food in her mouth from the last meal. Today the pt is having ext swelling and is unresponsive, so they called for transport to the ER. Upon our arrival the pt was laying in bed slightly responsive when we placed her on the cot. The pt opened her eyes for a brief moment and fell back asleep. The pt does not have any purposeful communication. She does not express any discomfort. The long-term staff report her as being a full code. O: gcs- 5, no obvious resp distress noted. ECG-SR. The pt has a PIC line in her right upper arm. She appears to have swelling to all of her extremities, but her right arm is a little more significant. The pt has bruising around her neck and chest. She also has bruising to both lower arms. A: alerted mental status. P: vs, ecg, bg, pt transported to [facility]. no other changes. Initial Vitals @11:06P: 133,CO: 5,SpO2: 96, @11:03P: 47,SpO2: 98, @11:03P: 87,R: 16,BP: 131/71,GCS: 6,Revised Trauma: 10, @11:13P: 89,R: 16,BP: 147/73,Pain: 0/10,GCS: 6,Temp: 98.9F,Glucose: 113,CO: 10,SpO2: 96,Revised Trauma: 10, Assessments @11:09MENTAL:Unresponsive,SKIN:HEENT:Eyes: Left: Dilated,Eyes: Right: Dilated,Neck/Airway: ECC,Neck/Airway: ECC,Head/Face: No Abnormalities,LUNG SOUNDS:General: No Abnormalities,ABDOMEN:General: No Abnormalities,PELVIS//GI:No Abnormalities,EXTREMITIES:Right Arm: Edema,Left Leg: Edema,Right Leg: Edema,Left Arm: Edema,Left Arm: ECC,Right Arm: ECC,Right Arm: ECC,PULSE:NEURO: Impression Altered Mental Status Procedures @11:09ALS AssessmentResponse: UnchangedSucceeded@11:093-Lead ECGResponse: UnchangedSucceeded Timeline 10:48,Call Received 10:48,Dispatch Notified 10:51,Dispatched 10:52,En Route 10:57,On Scene 10:57,At Patient 10:57,Depart Scene 11:03,BP: 131/71 M,PULSE: 87,RR: 16 R,SPO2: Ox,ETCO2: ,BG: ,PAIN: ,GCS: 6, [address] [place] [address] EMS Patient Care Report Name: KIM LE Room #: PRE ER M.R.#: [id number] Admission: Attend Phys: Discharge: Date of : 51 Report #: [id number] 11:03,BP: / M,PULSE: 47,RR: R,SPO2: 98 Ox,ETCO2: ,BG: ,PAIN: ,GCS: , 11:06,BP: / M,PULSE: 133,RR: R,SPO2: 96 Ox,ETCO2: ,BG: ,PAIN: ,GCS: , 11:09,ALS Assessment,Response: UnchangedSucceeded, 11:09,3-Lead ECG,Response: UnchangedSucceeded, 11:13,BP: 147/73 M,PULSE: 89,RR: 16 R,SPO2: 96 Ox,ETCO2: ,B,PAIN: 0,GCS: 6, 11:23,At Destination 11:41,Call Closed Disclaimer v1.1 Copyright 2020 [employer] This EMS Care Summary contains data elements from the applicable legal record (which may be displayed differently). It is designed to provide pertinent information for the following purposes: continuity of care, clinical quality, and state data reporting. The complete legal record is available to ED staff and administrators of the receiving hospital in [employer] Patient Tracker. All data is provided "as is."
[2020-05-15] MEDS ORDERED: DEPAKOTE125 MG PO (11:37)
[2020-05-15] MEDS ORDERED: LORAZEPAM 0.50.5 MG PO (11:39)
[2020-05-15] MEDS ORDERED: MIRTAZAPINE7.5 MG PO (11:41)
[2020-05-15] MEDS ORDERED: SUPER THERAVIT1 EACH PO (11:41)
[2020-05-15 11:54] LABS: URINE BILIRUBIN NEGATIVE (Negative); URINE BLOOD 2+ (Negative); URINE CLARITY SL CLOUDY; URINE COLOR YELLOW; URINE GLUCOSE-RANDOM* NEGATIVE (Negative); URINE KETONES NEGATIVE (Negative); URINE NITRITE-REFLEX NEGATIVE (Negative); URINE PROTEIN (DIPSTICK) 1+ (Negative); URINE SPECIFIC GRAVITY >= 1.030 (1.005-1.035); URINE UROBILINOGEN 0.2 E.U./dl (0.2-1.0)
[2020-05-15 11:55] LABS: URINE LEUKOCYTES-REFLEX 1+ (Negative)
[2020-05-15 12:16] LABS: SQUAMOUS 0-3 Few /LPF (0-3)
[2020-05-15 12:17] LABS: URINE RBC 3-10 Few /HPF (0-2); YEAST-REFLEX Present (None Seen)
[2020-05-15 12:18] LABS: AMORPHOUS URATES Few /LPF (None Seen); CASTS None Seen /LPF (None Seen)
[2020-05-15 12:25] LABS: ABSOLUTE NEUTROPHILS 12.7 thou/uL (1.4-8.2); BASOPHILS 0.7 % (0.0-2.0); EOSINOPHILS 9.5 % (0.0-3.0); HEMATOCRIT 33.3 % (37.0-47.0); HEMOGLOBIN 9.9 gm/dL (12.0-15.0); LYMPHOCYTES 4.9 % (24.0-44.0); MCH 28.6 pg (26.0-34.0); MCHC 29.8 g/dL (28.0-37.0); MCV 95.8 fL (80.0-100.0); MONOCYTES 3.1 % (1.0-8.0); PLATELET COUNT 200 thou/uL (150-400); POLYS 81.8 % (36.0-66.0); RBC 3.48 mil/uL (4.20-5.00); RDW 18.8 % (10.5-14.5); WBC 15.5 thou/uL (4.0-11.0)
[2020-05-15 12:44] LABS: ALBUMIN 1.8 g/dL (3.4-5.0); CREATININE 8.1 mg/dL (0.6-1.0); POTASSIUM 3.1 mmol/L (3.5-5.1); TOTAL BILIRUBIN 0.4 mg/dL (0.2-1.0); TOTAL PROTEIN 5.1 g/dL (6.4-8.2)
[2020-05-15 12:54] LABS: ANISOCYTOSIS 1+; OVALOCYTES OCCASIONAL; PLATELET ESTIMATE NORMAL; POIKILOCYTOSIS SLIGHT
--- NOTE | 2020-05-15 19:59 | NUR ---
Per pt was eating and talking with him a week and 1/2 ago. Pt has been in another longterm where she developed a pressure ulcer wound which was cleaned and a colostomy bag was put in to help wound heal. is very upset with nursing homes. has been with for over 28 years
[2020-05-16 04:12] VITALS: BP 100/57
--- NOTE | 2020-05-16 05:01 | NUR ---
Um, pt's , called for pt's update. Mu reports MD told him pt's change of mental status could be due to her dementia.
--- NOTE | 2020-05-16 05:04 | HC ---
[facility] [place] [address] CONSULTATION Name: KIM LE Room #: 170-6 ADM IN M.Greta.#: [id number] Admission: 05/15/20 Attend Phys: Garry Sofia MD Discharge: Date of : 51 Report #: [id number] THIS REPORT FOR: cc: Salvador Gonzales,Jackson Huerta MD ~ DATE OF SERVICE: 05/15/2020 INFECTIOUS DISEASE CONSULTATION ATTENDING PHYSICIAN: Dr. Sofia. REASON FOR EVALUATION: Profound encephalopathy. The patient has known underlying deep infection, sacral decubitus ulcer, suspected osteomyelitis, who does reside in a facility. Additionally, she has advanced dementia. Evaluation noted moderate to marked pyuria. CBC showed elevated white count with neutrophilia. Sodium 162 and a creatinine of 8.1 with a lipase of 2613, albumin 1.8. COVID testing and followup was negative, although she had been confirmed COVID positive back in February of this year, complicated by pneumothorax. She is really not responding at this point. She has been afebrile, otherwise hemodynamically ____. ALLERGIES: PENICILLINS, although apparently tolerates cephalosporins and morphine. CURRENT MEDICATIONS: Include pantoprazole, cefepime, vancomycin, heparin, insulin lispro, acetaminophen and ondansetron as needed. PAST MEDICAL HISTORY: History of severe dementia, hypertension, anxiety, depression, obstructive sleep apnea, coronary artery disease with dilated cardiomyopathy, paroxysmal AFib and recent COVID infection on 02/14/2020. SOCIAL HISTORY: Unknown. FAMILY HISTORY: Noncontributory. REVIEW OF SYSTEMS: Not obtained. PHYSICAL EXAMINATION: GENERAL: She is lying in left lateral decubitus position. She appears cachectic, chronically ill. She is pale. When aroused generally open her eyes, she kind of moans. VITAL SIGNS: Temperature not taken, pulse 71, respirations 12, blood pressure 120/78. SKIN: Warm, dry, no rashes. [facility] [address] [place] [address] CONSULTATION Name: KIM LE Room #: 170-6 ADM IN M.R.#: [id number] Admission: 05/15/20 Attend Phys: Garry Sofia MD Discharge: Date of : 51 Report #: [id number] NECK: Appears to be supple, although there is some resistance in active movement. LUNGS: Diminished breath sounds. HEART: Irregular. I do not appreciate a murmur. ABDOMEN: Soft. There are no apparent peritoneal signs. GENITOURINARY AND RECTAL: Deferred. LABORATORY WITH IMAGING: Chest x-ray showed left lung atelectasis and infiltrate. Urinalysis showed greater than 16-25 white cells, 10-30 bacteria, few yeast. White count 15.5, H and H 9.9 and 33.3, platelets of 200, ____ 9.5% eosinophils. Electrolytes: Sodium 162, potassium 3.1, chloride 129, bicarbonate is 17, anion gap of 16, BUN and creatinine 97/8.1, glucose of 82. AST of 48, ALT of 32, lipase of 2600. CT of the head showed no acute process. COVID testing was negative. ASSESSMENT AND PLAN: Profound encephalopathy, appears to have pancreatitis as well. This may well be medicine related, I doubt as the antibiotics. We will go ahead and check blood cultures. Await urinalysis. Continue combination antibiotics. We will add antifungal for the moment. We would consider imaging to exclude possibility of occult process. I think she is probably profoundly dehydrated. Her creatinine on 05/01/2020 was 0.5. She has persistent hypoalbuminemia and severe malnutrition as well. Continue wound care as prescribed. Overall, prognosis appears quite guarded. <ELECTRONICALLY SIGNED> By: Jackson Okeefe MD 05/16/20 0504 [id number] Jackson Okeefe MD /nt
[2020-05-16 10:50] LABS: ABSOLUTE NEUTROPHILS 11.3 thou/uL (1.4-8.2); BASOPHILS 0.7 % (0.0-2.0); HEMATOCRIT 27.9 % (37.0-47.0); HEMOGLOBIN 8.6 gm/dL (12.0-15.0); LYMPHOCYTES 6.4 % (24.0-44.0); MCH 28.8 pg (26.0-34.0); MCHC 30.7 g/dL (28.0-37.0); MCV 93.9 fL (80.0-100.0); MONOCYTES 3.2 % (1.0-8.0); PLATELET COUNT 145 thou/uL (150-400); POLYS 81.7 % (36.0-66.0); RBC 2.97 mil/uL (4.20-5.00); RDW 18.5 % (10.5-14.5); WBC 13.8 thou/uL (4.0-11.0)
[2020-05-16 11:03] LABS: ALBUMIN 1.5 g/dL (3.4-5.0); CALCIUM 9.1 mg/dL (8.5-10.1); CREATININE 8.5 mg/dL (0.6-1.0); TOTAL BILIRUBIN 0.3 mg/dL (0.2-1.0); TOTAL PROTEIN 4.5 g/dL (6.4-8.2)
[2020-05-16 11:34] LABS: ANISOCYTOSIS 2+; OVALOCYTES FEW
[2020-05-16 14:23] VITALS: BP 124/65
[2020-05-16 15:33] VITALS: BP 121/66
[2020-05-16 16:35] VITALS: BP 120/67
--- NOTE | 2020-05-16 18:24 | NUR ---
PT TO THE UNIT FROM THE ER. PT NON RESPONSIVE NOT ABLE TO ANSWER QUESTION FOR ADMISSION. PICTURE TAKEN OF DECUB ON R BUTTOCK/ SARCUM AND PLACED IN CHART - PT WITH WOUND CARE CONSULT. INTO SEE PATIENT - APPEARS TO BE RESTING AT THE PRESENT TIME. ASSESSMENT CHARTED IV FLUIDS RUNNING ORDERED.
[2020-05-16 19:00] VITALS: BP 123/63
[2020-05-17 04:00] VITALS: BP 126/73
[2020-05-17 07:00] VITALS: BP 110/66
[2020-05-17 07:05] VITALS: BP 110/66
--- NOTE | 2020-05-17 07:50 | NUR ---
PT LYING IN BED. NONRESPONSIVE. NO APPARENT PAIN. RESTING COMFORTABLY. FREQUENT OBSERVATION.
[2020-05-17 08:28] LABS: ABSOLUTE NEUTROPHILS 14.6 thou/uL (1.4-8.2); BASOPHILS 0.3 % (0.0-2.0); EOSINOPHILS 0.1 % (0.0-3.0); HEMATOCRIT 24.5 % (37.0-47.0); HEMOGLOBIN 7.6 gm/dL (12.0-15.0); LYMPHOCYTES 5.9 % (24.0-44.0); MCH 28.8 pg (26.0-34.0); MCHC 31.2 g/dL (28.0-37.0); MCV 92.4 fL (80.0-100.0); MONOCYTES 2.6 % (1.0-8.0); PLATELET COUNT 146 thou/uL (150-400); POLYS 91.1 % (36.0-66.0); RBC 2.65 mil/uL (4.20-5.00); RDW 18.3 % (10.5-14.5); WBC 16.1 thou/uL (4.0-11.0)
[2020-05-17 08:52] LABS: ALBUMIN 1.4 g/dL (3.4-5.0); CALCIUM 8.6 mg/dL (8.5-10.1); CREATININE 8.3 mg/dL (0.6-1.0); PHOSPHORUS 4.8 mg/dL (2.6-4.7); POTASSIUM 3.3 mmol/L (3.5-5.1)
[2020-05-17 09:57] LABS: ANISOCYTOSIS 2+
[2020-05-17 12:10] VITALS: BP 110/65
[2020-05-17 16:30] VITALS: BP 100/63
[2020-05-17 16:37] LABS: URINE BILIRUBIN NEGATIVE (Negative); URINE BLOOD 3+ (Negative); URINE CLARITY TURBID; URINE COLOR YELLOW; URINE GLUCOSE-RANDOM* NEGATIVE (Negative); URINE KETONES TRACE (Negative); URINE LEUKOCYTES 3+ (Negative); URINE NITRITE NEGATIVE (Negative); URINE PROTEIN (DIPSTICK) 2+ (Negative); URINE SPECIFIC GRAVITY >= 1.030 (1.005-1.035); URINE UROBILINOGEN 0.2 E.U./dl (0.2-1.0)
[2020-05-17 16:58] LABS: URINE CREATININE-RANDOM* 129.7 mg/dL
[2020-05-17 16:59] LABS: CASTS None Seen /LPF (None Seen); SQUAMOUS 0-3 Few /LPF (0-3)
[2020-05-17 17:00] LABS: BACTERIA 1-9 Few /HPF (None Seen); CRYSTALS None Seen /LPF (None Seen); MUCUS 4-6 Moderate strn/LPF (None Seen); URINE RBC 0-2 Rare /HPF (0-2); URINE WBC >25 Many /HPF (0-5)
[2020-05-17 17:01] LABS: WBC CLUMPS Few (None Seen); YEAST Present (None Seen)
[2020-05-17 17:15] LABS: PROT/CREAT RATIO 4.8; URINE PROTEIN-RANDOM* 617.5 mg/dL (<11.9)
--- NOTE | 2020-05-17 19:39 | NUR ---
Assumed care at shift change, assessment as charted and VSS. Dr Reyes,Dr GALDAMEZ have notified about patient's output, ordres recieved and IVF infused. Will continue with current POC.
[2020-05-17 20:17] VITALS: BP 95/49
--- NOTE | 2020-05-17 23:48 | NUR ---
REPORT GIVEN TO ALEJANDRO BACON.PATIENT WILL GO TO ROOM 454.TRANSPORTED BY INDUSTRY OPERATIONS INVESTIGATOR.
[2020-05-18] VITALS (62 sets, daily range): BP systolic 78–131; BP diastolic 46–65
[2020-05-18 06:04] LABS: ABSOLUTE NEUTROPHILS 14.6 thou/uL (1.4-8.2); BASOPHILS 0.8 % (0.0-2.0); HEMATOCRIT 26.8 % (37.0-47.0); HEMOGLOBIN 8.4 gm/dL (12.0-15.0); LYMPHOCYTES 7.5 % (24.0-44.0); MCHC 31.4 g/dL (28.0-37.0); MCV 92.2 fL (80.0-100.0); MONOCYTES 3.1 % (1.0-8.0); PLATELET COUNT 181 thou/uL (150-400); POLYS 84.6 % (36.0-66.0); RBC 2.91 mil/uL (4.20-5.00); RDW 18.3 % (10.5-14.5); WBC 17.3 thou/uL (4.0-11.0)
[2020-05-18 06:35] LABS: ALBUMIN 1.4 g/dL (3.4-5.0); ANION GAP 18 mmol/L (7-16); BUN 104 mg/dL (7-18); CALCIUM 8.6 mg/dL (8.5-10.1); CHLORIDE 105 mmol/L (98-107); CO2 15 mmol/L (21-32); CREATININE 8.4 mg/dL (0.6-1.0); DIRECT BILIRUBIN < 0.1 mg/dL (<0.1-0.2); GLUCOSE 78 mg/dL (74-106); LIPASE 1127 U/L (73-393); PHOSPHORUS 4.3 mg/dL (2.5-4.9); POTASSIUM 3.4 mmol/L (3.5-5.1); SGOT 23 U/L (15-37); SGPT 28 U/L (30-65); SODIUM 138 mmol/L (136-145); TOTAL BILIRUBIN 0.3 mg/dL (0.2-1.0); TOTAL PROTEIN 4.3 g/dL (6.4-8.2)
--- NOTE | 2020-05-18 08:15 | NUR ---
ORDERS RECEIVED AND CHART REVIEWED. UPON OT ENTRY, PT OPENING EYES TO VERBAL STIMULI BUT UNABLE TO FOLLOW SIMPLE COMMANDS. NOT APPROPRIATE FOR OT AT THIS TIME. PER NOTE IN CHART, PT WITH POOR PROGNOSIS THIS HOSPITALIZATION. WILL D/C OT ORDERS AT THIS TIME PT IS UNABLE TO PARTICIPATE WITH THERAPY, PLEASE REORDER IF THERE IS A STATUS CHANGE.
--- NOTE | 2020-05-18 10:08 | NUR ---
ASSUMED PT CARE THIS AM. PT HAS C GURROLA CATHETER AND A COLOSTOMY. NONVERBAL. BRUISING OVER ENTIRE BODY. PT IS ON TELE. DR CENTENO CALLED UNIT TO INFORM PT NEEDS TRANSFERED TO ICU, HOUSE SUP MADE AWARE AND AWAITING OPEN BED.
--- NOTE | 2020-05-18 12:01 | NUR ---
P.T. EVALUATION TO BE DEFERRED AT THIS TIME. PT IS UNABLE TO FOLLOW COMMANDS FOR SUCCESSFUL PARTICIPATION IN THERAPEUTIC INTERVENTIONS. PT WITH OVERALL DECLINING MEDICAL STATUS AND PLAN TO TX TO ICU TODAY AFTER PROCEDURE. REQUEST NEW P.T. ORDERS IF MEDICAL AND COGNITIVE STATUS IMPROVE.
--- NOTE | 2020-05-18 15:32 | NUR ---
Chart reviewed and case discussed with the care team. Pt transfered to ICU after getting temp dialysis cath placement. Pt known to cm from a previous admission last month. 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 She has previously been at [facility]. The pt had Covid in February and has had a continued decline since that time. During her last admission she needed I/D of a stg IV sacral wound. [facility] perlita had been recommending hospice to the pt's spouse. He did meet with Dr. Ernst, Palliative care during that stay;however he has continued to request aggressive tx and full code status. The pt had a diverting colostomy placed in hopes of helping the wound heal. Dc corporate meeting planner to fax update to the [facility] liason. They are holding her bed at [facility] and she recently did transition to ltc there. They have also recommended hospice to the pt's spouse;however he was not interested. Will follow along for support and dc planning as indicated.
--- NOTE | 2020-05-18 19:17 | NUR ---
PT DIALYED PER DR CENTENO, NO FLUID REMOVED, 500 IVF BOLUS GIVEN, 200 CC ALBUMIN GIVEN PER JACOBO FOR BP IN 80S SYSTOLICALLY, PT ASLEEP, AROUSABLE WITH PAIN AND REPOSITIONING, STAYED IN ICU WAITING ROOM UNTIL 1829, UPDATED ON PT'S STATUS AND POC, REPORT GIVEN TO ARLEEN SANCHEZ
[2020-05-19] VITALS (107 sets, daily range): BP systolic 100–131; BP diastolic 43–86
[2020-05-19 08:13] LABS: ALBUMIN 1.8 g/dL (3.4-5.0); CALCIUM 8.1 mg/dL (8.5-10.1); CREATININE 4.1 mg/dL (0.6-1.0); PHOSPHORUS 2.6 mg/dL (2.6-4.7)
[2020-05-19 08:14] LABS: POTASSIUM 2.9 mmol/L (3.5-5.1)
[2020-05-19 08:20] LABS: HEMOGLOBIN 6.7 gm/dL (12.0-15.0)
[2020-05-19 08:22] LABS: ABSOLUTE NEUTROPHILS 8.1 thou/uL (1.4-8.2); BASOPHILS 1.2 % (0.0-2.0); EOSINOPHILS 3.7 % (0.0-3.0); HEMATOCRIT 20.6 % (37.0-47.0); LYMPHOCYTES 8.7 % (24.0-44.0); MCH 29.3 pg (26.0-34.0); MCHC 32.5 g/dL (28.0-37.0); MCV 90.3 fL (80.0-100.0); MONOCYTES 5.3 % (1.0-8.0); PLATELET COUNT 116 thou/uL (150-400); POLYS 81.1 % (36.0-66.0); RBC 2.28 mil/uL (4.20-5.00); RDW 17.5 % (10.5-14.5)
--- NOTE | 2020-05-19 08:34 | HC ---
[facility] [place] [address] CONSULTATION Name: KIM LE Room #: 246-P ADM IN M.R.#: [id number] Admission: 05/15/20 Attend Phys: Garry Sofia MD Discharge: Date of : 51 Report #: [id number] THIS REPORT FOR: cc: Salvador Gonzales Kevin E. DO Jetmore, Allen B. MD ~ DATE OF SERVICE: 05/17/2020 WOUND CARE CONSULTATION NOTE REASON FOR CONSULTATION: Large chronic sacral stage 4 pressure ulcer in the setting of dementia, immobility and severe protein-calorie malnutrition, status post previous COVID-19 pneumonia. HISTORY OF PRESENT ILLNESS: The patient is a previous patient of [facility] well known to the wound care team and Dr. Thomas who previously underwent debridement of sacral stage 4 pressure ulcer and creation of a diverting colostomy. She is admitted now with severe protein-calorie malnutrition and altered mental status in the setting of advanced dementia. The patient has become much less responsive. The patient underwent surgical debridement of sacral pressure ulcer from previous admission, creation of diverting colostomy. She has a history of COVID-19, respiratory failure, pneumonia and pneumothorax in February. The patient states that wound VAC had not been continuously done since she left here. He understands she is unknown nutritional state for flap at this time. PAST MEDICAL HISTORY: Acute renal failure, altered mental status, COVID-19 pneumonia with respiratory failure, metabolic encephalopathy, urinary tract infection, coronary artery disease, dilated cardiomyopathy, paroxysmal atrial fibrillation. ALLERGIES: MORPHINE AND PENICILLINS. REVIEW OF SYSTEMS: Not obtainable. LABORATORY DATA: Albumin 1.4, sodium 162. MEDICATIONS: See chart. PHYSICAL EXAMINATION: GENERAL: Shows a very debilitated, unresponsive elderly woman with ecchymoses of her chest and arms. She is not responsive. ABDOMEN: Soft with a colostomy. EXTREMITIES: No lower extremity wounds. BACK: Examination of the patient's back shows a large complex sacral stage [address] [address] CONSULTATION Name: KIM LE Room #: 246-P ADM IN M.R.#: [id number] Admission: 05/15/20 Attend Phys: Garry Sofia MD Discharge: Date of : 51 Report #: [id number] pressure wound with exposed bone and connective tissue. There is a large soft tissue defect. Wound is very clean with some granulation tissue with exposed connective tissue at the base. Overall, wound measures approximately 12 cm x 12 cm. IMPRESSION: 1. Altered mental status with metabolic encephalopathy. 2. History of COVID-19 pneumonia and respiratory failure. 3. Coronary artery disease. 4. Dementia. 5. Severe protein-calorie malnutrition, albumin 1.4. 6. Immobility. 7. Large sacral stage 4 pressure ulcer, status post previous debridement and diverting colostomy. PLAN: Quarter-strength Dakin's packing to the wound daily. We will plan to restart negative pressure wound therapy with wound VAC. The patient understands that the patient's overall status and nutritional status makes any consideration of flap repair untenable at this time. <ELECTRONICALLY SIGNED> By: Mark Duvall MD 05/19/20 0834 [id number] Mark Duvall MD /nt
[2020-05-19 08:51] LABS: TOTAL BILIRUBIN 0.4 mg/dL (0.2-1.0); TOTAL PROTEIN 3.5 g/dL (6.4-8.2)
--- NOTE | 2020-05-19 09:21 | NUR ---
Pt day 4 NPO status and with severe protein calorie malnutrition. If tube feeding within pts plan of care, recommend nepro to start 25ml/hr and progress to goal 40ml/hr
[2020-05-19 10:07] LABS: HEPATITIS B SURFACE AG Negative (Negative)
--- NOTE | 2020-05-19 10:10 | NUR ---
VASCULAR ACCESS CONSULTED FOR CVAD, UNABLE TO PLACE DUE TO TEMP R DIALYSIS CATH AND LEFT PACEMEKER. SPOKE TO HUDSON BACON TO CALL DR CENTENO FOR IR ORDER TO PLACE
--- NOTE | 2020-05-19 11:43 | NUR ---
PT HGB LOWER THAN YESTERDAY. GI DOCTOR AWARE. NO BLOOD TRANSFUSION TODAY. WILL CONTINUE TO MONITOR CBC TOMORROW.
--- NOTE | 2020-05-19 13:32 | NUR ---
WOUND CARE F/U; THE WOUNDBED OVERALL IS A PINK TO RED COLOR. BONE IS EXPOSED. THE PATIENT IS MILDLY ANGRY AND COMBATIVE. NO ODOR OR OTHER S/S OF INFECTION. RN ASSISTING TODAY WITH DRESSING CHANGE AND POSITIONING. THE PATIENT HAS A DEEP TISSUE INJURY TO THE LEFT HIP THAT IS UNSTABLE. IT WAS CLEANSED AND COVERED WITH A BORDER FOAM. RECOMMENDATIONS; -CONTINUE VAC THERAPY. -BORDER FOAM TO THE LEFT HIP -TURN PT Q2H AT A MINIMUM RN PRESENT.
--- NOTE | 2020-05-19 16:19 | NUR ---
FAXED CLINICAL UPDATE TO [facility] SPOKE WITH DUGLAS IN ADM SHE RECEIVED UPDATE. DP TO FOLLOW.
[2020-05-20] VITALS (62 sets, daily range): BP systolic 104–135; BP diastolic 50–87
--- NOTE | 2020-05-20 03:27 | NUR ---
pt resting quietly in bed, alert to self and confused conversation, repositioning as needed, wound vac remains intact, heel protectors on, ppn infusing, planning for dialysis again today, vss, will con't to monitor per ppoc.
[2020-05-20 08:29] LABS: HEMOGLOBIN 6.9 gm/dL (12.0-15.0)
[2020-05-20 08:30] LABS: HEMATOCRIT 21.7 % (37.0-47.0); MCV 90.8 fL (80.0-100.0); RBC 2.39 mil/uL (4.20-5.00); RDW 17.5 % (10.5-14.5); WBC 12.1 thou/uL (4.0-11.0)
[2020-05-20 08:40] LABS: ALBUMIN 1.7 g/dL (3.4-5.0); CALCIUM 8.1 mg/dL (8.5-10.1); PHOSPHORUS 2.6 mg/dL (2.5-4.9); POTASSIUM 3.5 mmol/L (3.5-5.1)
[2020-05-20 08:44] LABS: CREATININE 2.9 mg/dL (0.6-1.0)
--- NOTE | 2020-05-20 16:49 | NUR ---
Progress note: Patient not progressing towards plan of care as evidenced by her need for dialysis at this time. She continues to sleep, with minimal interaction. She did express to nurse that she would slap her if she took off another sticker; which was her monitor patch that was being changed. Nurse provided education and reassurance, and she fell back asleep. She was trialed on room air, however her o2 sat dropped to upper 70's with her sleeping. Will continue one liter per nasal cannula for support while sleeping. Per physician order, okay for patient to transfer out of ICU, this will be informed to patients spouse.
--- NOTE | 2020-05-20 18:58 | NUR ---
VAT CALLED, ML LEAKING AND REMOVED. PIV STARTED IN [place] AFTER 4 STICKS. BILATERAL ARMS FLUID FILLED. RECOMMENDING IR CONSULT TOMORROW. PT HAS R TEMP DIALYSIS CATH AND L PACEMEKER SO UNABLE TO ATTEMPT CVAD
[2020-05-21 04:52] VITALS: BP 102/65
[2020-05-21 05:26] LABS: HEMATOCRIT 22.4 % (37.0-47.0); HEMOGLOBIN 7.2 gm/dL (12.0-15.0); MCHC 32.1 g/dL (28.0-37.0); MCV 90.2 fL (80.0-100.0); RBC 2.48 mil/uL (4.20-5.00); RDW 17.9 % (10.5-14.5)
[2020-05-21 06:07] LABS: ALBUMIN 1.7 g/dL (3.4-5.0); CALCIUM 8.3 mg/dL (8.5-10.1); PHOSPHORUS 2.4 mg/dL (2.5-4.9); POTASSIUM 3.7 mmol/L (3.5-5.1)
[2020-05-21 06:22] LABS: CREATININE 1.9 mg/dL (0.6-1.0)
[2020-05-21 07:20] VITALS: BP 121/71
--- NOTE | 2020-05-21 07:50 | NUR ---
REPORT FROM EFRAIN BACON FROM ICU PT TRANSFERRED TO BED AND BROUGHT TO ROOM 452, AWAKE AND TALKING BUT HAS SEVERE DEMENTIA AND SPEECH MAKES NO SENSE. VSS, RIJ TO HAVE PPN AT 80CCS/HR AWAITING FOR DELIVERY.
--- NOTE | 2020-05-21 10:52 | NUR ---
As per Dr. Burkett pt is to be transferred to CC/Tele floor based on clinical presentation. House sup informed
--- NOTE | 2020-05-21 13:08 | NUR ---
Pt drowsy but rousable. Due medications given as prescribed. On telemetry; no complains and signs of chest pain, crushing sensation and heaviness- on full code; with pacemaker. On O2 at 2lpm via nasal cannula- titrating. On nothing per orem- mouth swab done. With colostomy in place- output measured and recorded accordingly. With kinney in place- output measured and recorded accordingly. On blood sugar monitoring, taken and recorded accordingly. On dialysis, , last dialysis today but pt has schedule for today- confirmed with physician; with temporary cath at L neck- dressing in place. With sacral wound- wound vac in place, dressing to be changed -; pt turned on her sides regularly; on low airloss mattress; SCDS and prafo boots on. With R peripheral IV- pt supposed to have PPN at 12am- night RN informed during shift change, she followed up with pharmacy and hooked it up to patient; infusing well, dressing C/D/I. Pt's at bedside since this AM- update given. With UE and LE edema- extremities kept elevated; with weeping noted. Falls bundle in place. With skin tear at L hip and R knee- dressing to be changed today. Pt seen and examined by Dr Burkett this AM, pt to be transferred to CCU- hothouse worker Rhina informed at 1054am- no bed available but once pt discharges from CCU will transfer patient- Charge nurse and Rogers plastic manager informed; pt started on dialysis at 11:30am, still a/w bed. To continue monitoring patient.
--- NOTE | 2020-05-21 14:40 | NUR ---
PT ON DIALYSIS THIS DAY. IV ABX ON HOLD. CARE TEAM MONITORING HGB AND LIPASE. RENAL STILL INDICATING THAT PALLIATIVE/CONFORT CARE WOULD BE APPROPRIATE BUT SPOUSE ISN'T RECEPTIVE. CARE TEAM INDICATED THAT IT IS ANTIPATED THAT PT IS TO TRANSFER TO CCU ROOM 200 AFTER DIALYSIS THIS DAY. SPOUSE IS AT BEDSIDE. HE IS AWARE. CM TO FOLLOW INDICATED WITH DC PLANNING.
[2020-05-21 15:10] VITALS: BP 102/68
[2020-05-21 16:25] VITALS: BP 97/56
--- NOTE | 2020-05-21 16:41 | NUR ---
PATIENT TRANSFERED TO ROOM 201 FROM [facility] REPORT WAS GIVEN BEFORE TRANSFER. TELE MONITOR ON ORDERED. HAS PPN FLUIDS THAT NURSE STATES ON HOLD WILL CALL DR RODRIGUEZ. PT HAD DIAYLSIS TODAY. PT NON VERBAL AT THIS JAMES. AT BEDSIDE
--- NOTE | 2020-05-21 17:00 | NUR ---
SPOKE WITH 4 [place] NURSE SHE STATED TO INFUSE FLUIDS WAS ON HOLD BECAUSE OF DIAYLSIS. V.S. 97.8 18 85 97/56 O2 SAT 96 %RA.
[2020-05-21 21:08] VITALS: BP 124/61
--- NOTE | 2020-05-22 03:16 | NUR ---
CARE ASSUMED 1900. PT UNRESPONSIVE ONLY AWAKES TO PAINFUL STIMULI. NOTED IV IN THE RIGHT ARM WHICH WAS INFUSING PPN AT 80 ML/HR. IV INFUSION STOPPED AND NEW IV STARTED IN THE LEFT HAD. PT HAS VERY POOR PERIPHERAL ACCESS DUE TO EXTENSIVE UPPER EXTREMITIES EDEMA. Q2 TURNS. PT HAD VERY MINIMAL URINE OUTPUT. NO FURTHER CONCERNS OVERNIGHT. REMAINS SR ON THE MONITOR. HR STABLE. ALL VITALS STABLE. WILL CONTINUE TO MONITOR
[2020-05-22 03:48] VITALS: BP 117/54
[2020-05-22 06:13] LABS: ALBUMIN 1.5 g/dL (3.4-5.0); CALCIUM 7.8 mg/dL (8.5-10.1); CREATININE 1.6 mg/dL (0.6-1.0); PHOSPHORUS 2.5 mg/dL (2.5-4.9); POTASSIUM 3.9 mmol/L (3.5-5.1)
[2020-05-22 07:15] VITALS: BP 107/68
--- NOTE | 2020-05-22 11:05 | NUR ---
WOUND CARE F/U; HERE TODAY FOR WOUND ASSESSMENT AND WOUND VAC REAPPLICATION. THE WOUND BED TISSUE QUALITY CONTINUES TO IMPROVE. BEEFFY RED. THE WOUND EDGES ARE WNL WITH NO MASERATION. THE OVERALL SIZE OF THE WOUND IS THE SAME. THE PATIENTS WAS PRESENT THE WHOLE TIME. NO WOUND ODOR. THE PATIENT HAS AN OSTOMY AND A LITTLE RESIDUAL STOOL RECTALLY. RECOMMENDATIONS; CONTINUE VAC THERAPY. THE PATIENT REQUESTED A CONSULT WITH A SURGEON FOR TUBE FEEDING POSSIBLITIES.
--- NOTE | 2020-05-22 11:44 | NUR ---
OSTOMY CARE; SPOUSE AT BS, QUESTIONS ANSWERED REGARDING OSTOMY CARE, POUCH LEAKING, NEW POUCH ALEXANDER 2 PIECE SYSTEM APPLIED W/ ADAPT RING UNDER WAFER, PT TOLERATED CHANGING POUCH W/OUT ISSUES, STOMA PINK VIABLE FLAT W/ SKIN SURFACE, PERISTOMAL SKIN INTACT, LIQ GREENISH/BROWN STOOL NOTED, SUPPLIES AND INFO AT BS RECOMMENDATIONS; CHANGE POUCH Q 3-5 DAYS AND PRN CNC SERVICE TECHNICIAN AWARE
[2020-05-22 12:00] VITALS: BP 110/65
[2020-05-22 15:15] VITALS: BP 127/66
--- NOTE | 2020-05-22 16:37 | NUR ---
Case discussed with the care team. Pt on PPN for nutritional support with sx consult for possible peg. Palliative care consult pending due to overall poor prognosis. Renal has spoken with pt's spouse along with the attending regarding her poor outlook and that she is not a candidate for medical claims assistant dialysis. Pt's spouse appeared anxious and struggles with memory issues. He has difficulty remembering conversations with physicians. It may be benefical to try and involve other family members in these discussions to help support pt's spouse. They may have a son. No DPOA on file at this time. Will await imput from palliative care as Dr. Ernst is familiar with this case and has spoken with pt's spouse last admission.
--- NOTE | 2020-05-22 18:43 | NUR ---
ASSESSMENT CHARTED - PT GROANS FROM TIME TO TIME. PT TURNED AND MOUTH CARE GIVEN Q 3. DESSISNG TO L HIP CHANGED - WOUND VAC CHANGED PER WOUND CARE - OSTOMY BAG CHANGED PER OSTOMY NURSE. MID LINE PLCE THIS AM AND PPN RESTARTED - MEDS PER JUL - PT APPEARS TO BE RESTING COMFORTABLY. IN AT THE BEDSIDE PLAYINF MUSIC VERY LOUDY AND STOMPING FEET AND DANCING IN THE ROOM.
[2020-05-22 20:15] VITALS: BP 122/65
[2020-05-23 04:45] VITALS: BP 118/58
[2020-05-23 05:55] LABS: ALBUMIN 1.6 g/dL (3.4-5.0); CALCIUM 8.3 mg/dL (8.5-10.1); CREATININE 2.4 mg/dL (0.6-1.0); POTASSIUM 4.7 mmol/L (3.5-5.1)
[2020-05-23 07:02] VITALS: BP 106/63
--- NOTE | 2020-05-23 07:39 | NUR ---
ASSUMED PATIENT CARE AT 1845. PATIENT IS LETHARGIC AND ONLY ANIMATES WITH STIMULATION. BREATHING STABLE ON ROOM AIR. TURNS AND SKIN CARE PROVIDED. CONTINUE PLAN OF CARE.
[2020-05-23 11:23] VITALS: BP 137/68
[2020-05-23 15:28] VITALS: BP 122/69
--- NOTE | 2020-05-23 17:50 | NUR ---
ASSESSMENT CHARTED - MEDS PER MAR - PT REMIANS NPO - MOUTH CARE GIVEN AND PATIENT TURNED, DRESSINGS TO L HIP AND BETWEEN KNEES TENDED TO - EACH WITH SEROUS DRAINAGE. GURROLA WITH SCANT URINE OUTPUT. AT THE BEDSIDE TODAY FOR MOST OF DAY. PT APPEARS TO BE RESTING COMFORTABLY AT THE PRESENT TIME.
[2020-05-23 20:15] VITALS: BP 121/73
[2020-05-24] VITALS (8 sets, daily range): BP systolic 120–138; BP diastolic 69–77
[2020-05-24 03:51] LABS: ALBUMIN 1.5 g/dL (3.4-5.0); CALCIUM 8.2 mg/dL (8.5-10.1); PHOSPHORUS 5.6 mg/dL (2.6-4.7); POTASSIUM 5.6 mmol/L (3.5-5.1)
--- NOTE | 2020-05-24 06:00 | NUR ---
pt assesment as charted, repositioned every 2 hours, profo boots on, wnd vac to suction dressing remains intact, vss, mouth care as needed, will con't to monitor per ppoc.
--- NOTE | 2020-05-24 18:39 | NUR ---
PT CARE ASSUMED AT 0700. ASSESSMENTS CHARTED. MEDICATIONS CHARTED. RHYS MIDLINE, DOES NOT DRAW. COLOSTOMY. GURROLA. POSSIBLE PEG PLACEMENT NEXT WEEK. WOUND CARE ON LT HIP REFUSED BY SPOUSE, DID NOT WANT PT TURNED DUE TO PAIN.
[2020-05-25 03:41] LABS: ALBUMIN 1.6 g/dL (3.4-5.0); CALCIUM 8.3 mg/dL (8.5-10.1); CREATININE 3.8 mg/dL (0.6-1.0); PHOSPHORUS 7.7 mg/dL (2.6-4.7)
[2020-05-25 03:47] LABS: POTASSIUM 6.8 mmol/L (3.5-5.1)
[2020-05-25 04:51] VITALS: BP 111/72
--- NOTE | 2020-05-25 06:05 | NUR ---
PT RESTING IN BED THRU THE NOC, UPDATED SPOUSE ON CONDITION, TURNING Q2 HRS AND PRN, PPN INFUSING, CV LABS CALLED AND PHYSICIANS NOTIFIED PLAN DIALYSIS TODAY, VSS, WILL CON'T TO MONITOR PER PPOC.
[2020-05-25 08:36] VITALS: BP 86/53
[2020-05-25 09:36] LABS: ABSOLUTE NEUTROPHILS 15.4 thou/uL (1.4-8.2); BASOPHILS 1.2 % (0.0-2.0); EOSINOPHILS 0.8 % (0.0-3.0); HEMATOCRIT 24.1 % (37.0-47.0); HEMOGLOBIN 7.4 gm/dL (12.0-15.0); LYMPHOCYTES 7.9 % (24.0-44.0); MCH 28.5 pg (26.0-34.0); MCHC 30.8 g/dL (28.0-37.0); MCV 92.5 fL (80.0-100.0); MONOCYTES 5.1 % (1.0-8.0); PLATELET COUNT 305 thou/uL (150-400); RBC 2.61 mil/uL (4.20-5.00); RDW 18.7 % (10.5-14.5); WBC 18.1 thou/uL (4.0-11.0)
--- NOTE | 2020-05-25 10:36 | NUR ---
OSTOMY CARE; POUCH CHANGED USING 2 PIECE SYSTEM ALEXANDER CUT TO FIT, STOMA PINK VIABLE W/ LIQ BROWN STOOL NOTED, PERISTOMAL SKIN INTACT, SPOUSE AT BS, QUESTIONS ANSWERED REGARDING OSTOMY CARE/MANAGEMENT, SUPPLIES AT BS RECOMMENDATIONS; CHANGE POUCH Q3-5DAYS AND PRN, EMPTY PRN HEADSTART TEACHER AWARE
--- NOTE | 2020-05-25 11:58 | NUR ---
Once TF ready to start following PEG placement recommend nepro at 40ml/hr, discontinue PPN. If no feeding pump available, recommend gravity drip to achieve ~1 Liter of nepro in 24hr period.
[2020-05-25 12:34] VITALS: BP 129/55
[2020-05-25 14:28] LABS: ANISOCYTOSIS 1+
[2020-05-25 16:48] VITALS: BP 124/60
[2020-05-25 19:59] VITALS: BP 110/54
[2020-05-26 03:35] VITALS: BP 105/56
[2020-05-26 05:30] LABS: WBC 11.9 thou/uL (4.0-11.0)
[2020-05-26 05:32] LABS: MCHC 32.2 g/dL (28.0-37.0); MCV 90.3 fL (80.0-100.0); RBC 2.19 mil/uL (4.20-5.00); RDW 17.5 % (10.5-14.5)
[2020-05-26 05:46] LABS: ALBUMIN 1.4 g/dL (3.4-5.0); POTASSIUM 5.4 mmol/L (3.5-5.1); TOTAL BILIRUBIN 0.4 mg/dL (0.2-1.0)
[2020-05-26 05:54] LABS: HEMATOCRIT 19.8 % (37.0-47.0); HEMOGLOBIN 6.4 gm/dL (12.0-15.0)
[2020-05-26 06:08] LABS: CREATININE 2.3 mg/dL (0.6-1.0)
--- NOTE | 2020-05-26 07:31 | NUR ---
ASSUME CARE 1900. PT/VITALS STABLE. PT IS NON VERBAL. OPENS EYES SOMETIMES AND BUT DOES NOT REALLY TRACT AND MAKES INCOMPREHENSIBLE SOUNDS. PAIN NOTED WITH ROM OR TURNING PT. VITALS STABLE. NO DISTRESS NOTED THROUGH THE SHIFT. VERY POOR URINE OUTPUT. GURROLA IN PLACE. MUCOUSY BROWN LIQUID STOOL NOTED FROM COLOSTOMY. POOR PROGRESS WITH POC. PT ON PPN. HGB 6.4/HTC 19.8. PLAN TO TRANSFUSE BLOOD TODAY AND POSSIBLE PLACEMENT OF PEG TUBE. WILL CONTINUE TO MONITOR AND FOLLOW WITH POC
[2020-05-26 08:36] VITALS: BP 99/51
--- NOTE | 2020-05-26 10:19 | NUR ---
THIS PUBLIC TRANSIT TROLLEY DRIVER PROVIDED COMFORT AND SUPPORT TO ÁNGEL, THE . WE DID LIFE REVIEW AND DISCUSSED THEIR DAVIDE. WE CONCLUDED IN PRAYER.
[2020-05-26 10:52] VITALS: BP 107/63; BP 92/59
[2020-05-26 15:35] VITALS: BP 119/71
--- NOTE | 2020-05-26 16:58 | NUR ---
PT RESIDES AT [facility] FAXED CLINICAL UPDATE RECEIVED CONFIRMATION AND LEFT MSG WITH DUGLAS IN ADM.
--- NOTE | 2020-05-26 17:27 | NUR ---
dicussion of peg tube placement however plan dobhoff. Sp with Patria with GI who reports plan for dobhoff to determine if patient could tolerate TF. Dialysis is temporary. Sp with spouse. He reports he is not planning on patient returning to [place]. he repprts he has a place in mind but will not tell me until possibly tomorrow. He reports he a list of skilled facilities prev given to him.
--- NOTE | 2020-05-26 18:28 | NUR ---
REMAINS OBTUNDED EXCEPT WHEN TURNED, CRIES OUT. AT BEDSIDE. TRANSFUSED D/T ANEMIA. PLACEMENT OF PEG CHANGED TO DOBHOFF FIRST. AWAITING ICU NURSE TO ASSIST D/T STANDING ORDERS.
[2020-05-26 20:00] VITALS: BP 116/72
[2020-05-27 05:29] LABS: HEMATOCRIT 23.2 % (37.0-47.0); HEMOGLOBIN 7.5 gm/dL (12.0-15.0); MCH 28.5 pg (26.0-34.0); MCHC 32.2 g/dL (28.0-37.0); MCV 88.4 fL (80.0-100.0); RBC 2.63 mil/uL (4.20-5.00); WBC 15.3 thou/uL (4.0-11.0)
[2020-05-27 05:38] VITALS: BP 132/73
[2020-05-27 07:15] VITALS: BP 132/77
--- NOTE | 2020-05-27 07:38 | NUR ---
2200 APPRENTICE STYLIST HERE TO ASSIST WITH DOBHOFF PLACEMENT PER PROTOCOL. INSERTED TO RIGHT NARES WITHOUT DIFFICULTY TO 50CM. KUB ORDERED. SPOKE WITH FOR 15MIN FOR UPDATE. 230 KUB RESULTS. ADVANCED 10CM TO 60CM PER RADIOLOGY. ORDERED KUB FOR VERIFICATION. 0100: STILL AWAITING RADIOLOGY FOR KUB. CALLED AND THEY ARE BUSY WITH STATS IN ER SO WILL BE HERE WHEN ABLE. 0200: KUB DONE. AWAITING RESULTS. 0455: RESULTS FROM KUB OK TO USE. TUBE FEEDING STARTED AT 20CC/HR AND PPN DECREASED TO 40CC/HR. TURNED EVERY 2 HOURS FOR COMFORT AND SKIN CARE. WORKING ON GOALS AND PLAN OF CARE FOR NOC. NOT PROGRESSING TOWARDS DISCHARGE GOALS. CONTINUE TO ASSES CLOSELY.
[2020-05-27 12:26] VITALS: BP 128/87
--- NOTE | 2020-05-27 12:42 | NUR ---
WOUND CARE F/U; HERE TODAY FOR A VAC DRESSING CHANGE/ASSESSMENT. THE SEAL WAS INTACT UPON ARRIVAL. THERE IS SMALL TO MODERATE DRAINAGE AT THIS TIME. THE QUALITY OF THE WOUNDBED IS IMPROVING. A SMALL AMOUNT OF SLOUGH IN THE WOUND BED. THE PERIWOUND MARGINS ARE HEALTHY. THE WOUND BED IS NOT FRIABLE, NO BLEEDING WITH THE [id number] CHANGE. THE PATIENTS WAS HERE DURING THE ASSESSMENT AND RE-APPLICATION OF THE VAC. NO ODOR OR ANY S/S OF INFECTION. RECOMMENDATIONS; 1- CONTINUE WITH VAC THERAPY. DISCUSSED WITH ARLEEN
--- NOTE | 2020-05-27 14:42 | NUR ---
Met with spouse to further discuss pallative care or skilled. Spouse reports he wants patient to transfer to [facility]. Updated Dr Burkett. Referral faxed to [facility] for eval.
--- NOTE | 2020-05-27 15:16 | NUR ---
FAXED REFERRAL TO [facility] SPOKE WITH TANNA IN ADM SHE RECEIVED REFERRAL AND WILL REVIEW. DP TO FOLLOW.
--- NOTE | 2020-05-27 16:40 | NUR ---
Patient with commercial [employer] plan. Wait list for Blue Cross commercial patients. [facility] does not accept Blue Cross at this time. Updated spouse. Alerted if medicare primary may be option. Spouse to call Keith Mae to determine if he cancelled policy would medicare be primary. Encouraged him to strongly discuss options as they may cover the rest of hospital stay, or rest of month. Needs to make informed decision.
--- NOTE | 2020-05-27 18:08 | NUR ---
PT HAD HEMODIALYSIS THIS AM. PT IS ON ENTERAL FEEDINGS VIA NG TUBE. CURRENT RATE IS 40 ML; GOAL RATE IS 40 ML. PT AT BEDSIDE ALL DAY. NEPHRO CONSULTED. GI CONSULTED. DR FISHMAN CONSULTED. CASE MGMT CONSLUTED. DIESEL PILE DRIVER OPERATOR CONSULTED. POC IS TO CONTINUE ENTERAL FEEDINGS AT GOAL RATE OF 40ML. CASE MGMT AWAITING PLACEMENT AT [facility]. FALL PRECAUTIONS IN PLACE. PT IS RESTING COMFORTABLY. NO CONCERNS AT THIS TIME.
[2020-05-27 19:51] VITALS: BP 90/46
[2020-05-28 04:33] VITALS: BP 134/68
[2020-05-28 07:25] VITALS: BP 81/54
--- NOTE | 2020-05-28 08:27 | NUR ---
0500 TEMP 100.5. NO RESIDUAL FROM DOBHOFF TUBE FEEDING BUT PATIENT DID VOMMIT THIS AM. REMAINS LETHARGIC, OPENS EYES AND SAYS SOME INCOPREHENSABLE WORDS. NOTIFIED DATABASE SECURITY EXPERT OF TEMP AND VOMMITTING. ORDERS FOR TYLENOL SUPP X1. GIVEN WHEN ARRIVED FROM PHARMACY. BED BATH DONE. NOT PROGRESSING TOWARDS DISCHARGE GOALS. CONTINUE TO ASSES CLOSELY.
--- NOTE | 2020-05-28 11:05 | NUR ---
Spoke face to face with spouse and discussed plan of care. UR attempting to reach employer HR at [phone] to clarify if and when patient can be removed from [facility] in order to utilize her existing Medicare coverage. CM is working with [facility] to facilitate transfer. Discussed with spouse multiple MD concerns for futility of care. Patient stated he understood clearly that his was "dying" but following her wishes he wishes to pursue aggressive care. He states that if and or when she becomes end of life - his wish is to have her home to pass away peacefully in her own home. In speaking with spouse I do believe his motivation for [facility] is for proximity to home and if need be to take her home if all "else fails" to pass in their home. Have conveyed this information to both Utilization Review who has now left a message with the employer HR at [phone] for clarification as well as the social media marketing manager on the case. Spouse did bring in [facility] papers that I will get MD completion to return to him. CM will continue to follow this complicated case and assist in discharging planning.
[2020-05-28 11:55] VITALS: BP 89/49
--- NOTE | 2020-05-28 13:50 | NUR ---
SPOKE WITH MAXWELL Pham FROM PT'S [employer] DEPT. TO REMOVE PT FROM [employer] BC[employer] PLAN, NEEDS A QUALIFYING EVENT AND THEN NEEDS TO BE IN 31 DAY WINDOW FROM THIS EVENT TO MEET [employer] GUIDELINES FOR ADDING TO OR REMOVING FROM PLAN. PT DOES NOT HAVE A QUALIFYIING EVENT. HAS HAD ACTIVE MEDICARE GREATER THAN 31 DAYS. OTHER OPTION IS TO REMOVE PT FROM POLICY DURING OPEN ENROLLMENT (FIRST 3 WEEKS OF JULY FOR SPOUSE) AND ANY CHANGES MADE DURING OPEN ENROLLMENT WOULD BECOME ACTIVE SEPTEMBER 12, 2020. [employer] REMAINS PRIMARY INSURANCE FOR ANY LTACH DC PLANNING. CM DIRECTOR, BOTH INDUSTRIAL PSYCHOLOGY PROFESSOR UPDATED.
[2020-05-28 15:10] VITALS: BP 88/48
--- NOTE | 2020-05-28 16:32 | NUR ---
Spoke face to face with spouse and discussed that UR did reach out to [employer] and noted in the record that given current needs for a qualifying event the patient may not now be eligible for Medicare primary coverage unit the September. Spouse stated: "she won't live that long". Spouse was tearful and it was then I offered a chance for patient to transfer to a facility closer to his/their home in the [facility]. Shen said: "lets get her somewhere where she can be comfortable". Spouse was tearful and offered support as his demeanor and words are reflective of his understanding of the patients condition as it appears per the medical providers is now in end of life. Was able to get FMLA papers completed and signed and spouse did take them with him. Told him I would notify the SW team of his intent and wishes. He tearfully acknowledged and thanked us all for our care and time. SW now aggressively pursing discharge destination in accordance with spouses wishes.
--- NOTE | 2020-05-28 18:18 | NUR ---
PT ALERT ONLY TO SELF. RECEIVED REPORT PT HAD FEVER OF 100.1 DEGREES F. UNIT ASSEMBLER GAVE ACETAMINOPHEN. PT WAS AFEBRILE FOR DAY SHIFT. PT TOLERATING NG DOBHOFF FEEDING. CURRENT RATE IS 40ML/HR. GOAL RATE IS 40ML/HR; 200ML FLUSH WITH NO DIFFICULTY. PT AT THE BEDSIDE. POC IS TO CONTINUE TO WORK WITH CASE [facility] FOR PLACEMENT IN [facility]; PT IS RESTING COMFORTABLY. NO CONCERNS AT THIS TIME.
[2020-05-28 19:30] VITALS: BP 104/53
[2020-05-29 03:30] VITALS: BP 118/57
[2020-05-29 05:29] LABS: ABSOLUTE NEUTROPHILS 9.6 thou/uL (1.4-8.2); BASOPHILS 0.5 % (0.0-2.0); EOSINOPHILS 0.2 % (0.0-3.0); HEMOGLOBIN 7.2 gm/dL (12.0-15.0); LYMPHOCYTES 3.8 % (24.0-44.0); MCH 29.2 pg (26.0-34.0); MCHC 32.7 g/dL (28.0-37.0); MCV 89.3 fL (80.0-100.0); MONOCYTES 1.1 % (1.0-8.0); PLATELET COUNT 246 thou/uL (150-400); POLYS 94.4 % (36.0-66.0); RBC 2.46 mil/uL (4.20-5.00); RDW 17.9 % (10.5-14.5); WBC 10.2 thou/uL (4.0-11.0)
[2020-05-29 05:52] LABS: ALBUMIN 1.3 g/dL (3.4-5.0); CALCIUM 9.1 mg/dL (8.5-10.1); TOTAL BILIRUBIN 0.5 mg/dL (0.2-1.0); TOTAL PROTEIN 4.3 g/dL (6.4-8.2)
[2020-05-29 06:26] LABS: POTASSIUM 2.9 mmol/L (3.5-5.1)
[2020-05-29 06:27] LABS: CREATININE 3.8 mg/dL (0.6-1.0)
--- NOTE | 2020-05-29 06:52 | NUR ---
OSTOMY CARE; POUCH ON X 5DAYS, CHANGED USING ALEXANDER 2 PIECE CUT TO FIT APPLIANCE W/ ADAPT RING UNDER WAFER, LETHARGIC, TOLERATED PROCEDURE WELL, STOMA PINK VIABLE FLAT W/ SKIN SURFACE, PERISTOMAL SKIN INTACT, LOOSE BROWNISH/YELLOW STOOL NOTED, SUPPLIES AT BS W/ INSTRUCTIONS RECOMMENDATIONS; CHANGE POUCH Q3-5 DAYS AND PRN, EMPTY PRN, ALEXANDER CUT TO FIT DRY CLEANER HAND AWARE
[2020-05-29 07:15] VITALS: BP 102/55
--- NOTE | 2020-05-29 07:43 | NUR ---
pt assessment as charted, TF infusing in dobhoff at goal of 40, repositioned q 2 hrs and as needed, vss, occassionally will open eyes, report given to next shift to con't ppoc.
--- NOTE | 2020-05-29 10:47 | NUR ---
WOUND CARE F/U; VAC DRESSING CHANGE AND A WOUND ASSESSMENT TODAY. THE PATIENTS REMAINS AT THE BEDSIDE AND IS GREATLY INVOLVED,SUPPORTIVE AND IS ACTIVELY ADVOCATING FOR HIS . THE WOUNDS TODAY ARE STABLE USING THE WOUND VAC AND TOPICAL DRESSINGS. THE LEFT HIP WOUNDS HAVE NECROTIC TISSUE PRESENT. THE WOUNDS LOOK LESS SEVERE THE SACRUM/BUTTOCKS. NO ODOR OR ERYTHEMA. THE PATIENT TOLERATES THE DRESSING CHANGE WELL. RECOMMENDATIONS; -CONTINUE CURRENT TREATMENT. RN WAS PRESENT
[2020-05-29 10:55] VITALS: BP 120/62
[2020-05-29 15:30] VITALS: BP 100/51
--- NOTE | 2020-05-29 15:36 | NUR ---
The attending and specialists have visited with spouse at bedside this am. Poor prognosis. The pt is not able to tolerate dialysis per renal. Spouse conflicted about any decision making regarding end of life. Per previous cm, appears open to discussing care facility [place] and "making her comfortable". Referral called and faxed to Hospice for info visit regarding their [facility] facility. They will reach out to spouse this weekend to see if he would like to meet with them and discuss this option. Will follow.
--- NOTE | 2020-05-29 15:58 | NUR ---
FAXED REFERRAL TO HOSPICE SPOKE WITH CHAZ IN INTAKE SHE RECEIVED REFERRAL AND WILL REVIEW.
[2020-05-29 19:00] VITALS: BP 106/55
--- NOTE | 2020-05-29 19:33 | NUR ---
VSS, PATIENT HAD TEMP AND DOCTOR NOTIFIED. DOBHOFF GOING AT GOAL RATE OF 40. PATIENT ON ROOM AIR. COLOSTOMY WITH LIGUID STOOL OUTPUT. GURROLA INTACT. PATIENT TURNED OFTEN. AT BEDSIDE, VERY HIGH ANXIETY. NO SIGNS OF DISTRESS. WILL CONTINUE TO MONITOR.
[2020-05-29 23:59] VITALS: BP 118/50
[2020-05-30] VITALS (10 sets, daily range): BP systolic 78–94; BP diastolic 38–48
[2020-05-30 03:26] LABS: ALBUMIN 1.1 g/dL (3.4-5.0); CALCIUM 8.8 mg/dL (8.5-10.1); PHOSPHORUS 3.8 mg/dL (2.5-4.9)
[2020-05-30 03:29] LABS: CREATININE 4.8 mg/dL (0.6-1.0); POTASSIUM 2.7 mmol/L (3.5-5.1)
--- NOTE | 2020-05-30 06:13 | NUR ---
CARE ASSUMED 1900, PT NONE VERBAL, DOES NOT FOLLOW COMMANDS. Q2 TURNS , TUBE FEEDING CONTINUOUS. PT ALSO HAS EPISODES OF AGONAL BREATHING PERIODICALLY. NOTIFIED THAT PATIENT APPEAR LETHERGIC AND NOT DOING SO WELL THIS AM PT NOTED TO HAVE LOW BPs WITH 80s. TOTAL URINE OUTPUT OVERNIGHT 75 CC. FINAL BLOCK PRESS OPERATOR NOTIFIED. IV BOLUS FLUIDS 250 MLS ORDERED. BP AFTER BOLUS 94/48, AND 88/46. FINAL BLOCK PRESS OPERATOR NOTIFIED . NEW ORDER OF ANOTHER BOLUS 500 CC ORDERED. CONTINUE TO MONITOR Pts BPs. NO OTHER CONCERNS AT THIS TIME.
[2020-05-30 14:32] LABS: MCH 28.5 pg (26.0-34.0); RDW 18.1 % (10.5-14.5)
[2020-05-30 14:33] LABS: HEMATOCRIT 20.6 % (37.0-47.0); HEMOGLOBIN 6.6 gm/dL (12.0-15.0); MCHC 31.9 g/dL (28.0-37.0); MCV 89.3 fL (80.0-100.0); RBC 2.31 mil/uL (4.20-5.00)
[2020-05-30 14:42] LABS: APTT 27.3 Seconds (24.5-32.8); INR 1.1; PROTIME 11.2 Seconds (9.3-11.4)
--- NOTE | 2020-05-30 15:42 | NUR ---
PT AWAKE BUT NOT RESPONDING TO QUESTIONS OR FOLLOWING COMMANDS. BP VERY LOW DR. MIKE. OTHER VSS. WOUND VAC IN PLACE TO SACRAL WOUND. TUBE FEEDING PER DDOBHOFF PT TOLERATES WELL, GURROLA TO DD. PT DOSE NOT APPEAR TO BE IN ANY PAIN. PT AT BEDSIDE. PT NOT PROGRESSING TOWRADS POC GOALS.
--- NOTE | 2020-05-30 18:41 | NUR ---
PT NEEDING ACCESS FOR ADMIT TO ICU. PT HAD A LT MIDLINE THAT WAS DC'D DUE TO A DVT AND IS IN NEED OF MULTIPLE MEDS. A 5FRTLIJ PLACED IN THE LEFT. PLEASE SEE NI FOR DETAILS
[2020-05-31] VITALS (78 sets, daily range): BP systolic 25–255; BP diastolic 11–212
--- NOTE | 2020-05-31 03:50 | NUR ---
PT TRANSFERRED FROM 201 TO ICU 243 FOR HYPOTENSION AND DECLINING STATUS. QUAD STRENGTH LEVO GTT ORDERED.
--- NOTE | 2020-05-31 04:21 | NUR ---
ASSESSMENTS CHARTED, MEDS CHARTED GIVEN. TOOK OVER CARE OF PATIENT AT MIDNIGHT, FROM ARLEEN SANCHEZ. SENT PATIENT TO ICU, BACK TO ARLEEN SANCHEZ. REPORT GIVEN. PATIENT'S BLOOD PRESSURE CONTINUES TO DROP THROUGH SHIFT. ADAMANT ALL EFFORTS ARE TO BE MADE.
--- NOTE | 2020-05-31 04:26 | NUR ---
0405 Quad Strength Levo gtt started at 10 mcg/min for SBP of 70; repeat pressure at 0425 only SBP 74, so Levo increased to 15 mcg/min. Primary nurse, Stephie Gee, will continue to monitor. O2 Sat on admit to ICU was 77%, with good pleth form. Pt placed on 50% venti mask and sat is now 99%.
--- NOTE | 2020-05-31 04:27 | NUR ---
LEFT MESSAGE ON HUSBANDS PHONE OF PATIENTS MOVE TO ICU.
--- NOTE | 2020-05-31 07:41 | NUR ---
ASSESSMENT: PT WITH POOR PROGRESS TOWARDS DC GOALS. PT WAS TRANSFERRED TO ROOM 243 AT APPROXIMATELY 0400. WAS LEFT A VOICE MESSAGE PER EDUARDO BACON (REPORTING RN). LEVO X [address] FISHMAN ROUNDED THIS AM. WILL CONTINUE TO MONITOR.
[2020-05-31 08:06] LABS: HEMOGLOBIN 8.2 gm/dL (12.0-15.0); MCH 28.5 pg (26.0-34.0); MCHC 31.5 g/dL (28.0-37.0); MCV 90.4 fL (80.0-100.0); PLATELET COUNT 245 thou/uL (150-400); RBC 2.87 mil/uL (4.20-5.00); RDW 18.1 % (10.5-14.5); WBC 8.3 thou/uL (4.0-11.0)
[2020-05-31 08:09] LABS: CALCIUM 10.2 mg/dL (8.5-10.1); POTASSIUM 3.1 mmol/L (3.5-5.1)
[2020-05-31 08:15] LABS: ALBUMIN 1.1 g/dL (3.4-5.0); TOTAL BILIRUBIN 1.1 mg/dL (0.2-1.0); TOTAL PROTEIN 4.4 g/dL (6.4-8.2)
[2020-05-31 12:02] LABS: ABSOLUTE NEUTROPHILS 7.6 thou/uL (1.4-8.2); METAMYELOCYTES 2 %
[2020-05-31 12:04] LABS: TOXIC GRANULATION 1+
[2020-05-31 12:09] LABS: LARGE PLATELETS FEW
[2020-05-31 12:13] LABS: ANISOCYTOSIS 2+; OVALOCYTES 1+
--- NOTE | 2020-05-31 17:13 | NUR ---
>>>>>>>>report received from ARLEEN Rocha at 1530, care assumed. >>>>>>>> arrived, spending time with his talking to her, holding her hand, providing support. ARLEEN Rocha provided support to spouse. Dr. Han present. Noted pt's bp abruptly increased at 1617 to 200's/129. vasopressin off, levophed gtt titrated down, then titrated off however bp remained elevated. per Dr. Han's order heparin gtt off. >>>>>>>>bp abruptly decreased to systolic 55, then 63. levophed infusing at 10 mcg/min. Dr. Han spoke with again confirming pallative care that she just discussed with him.
--- NOTE | 2020-05-31 18:35 | NUR ---
fentanyl 50 mcg iv given for increased and labored resp rate. see mars for administration. spouse remaining at bedside, providing support. heart rate deteriorated, then asystole. provided support to Mu, her . see prononuncement. ARLEEN Rocha completed paperwork. MTN notified of - not a candidate for donation.
== END 2020-05-31 18:35 | DRG 871 ==
LOC: ER 11:28 → 2N 14:07 → 4W 14:07 → EROBS 14:07 → 2N 05-16 15:33 → 4W 05-17 23:53 → ICU 05-18 12:23 → 4W 05-20 23:58 → 2N 05-21 16:12 → ICU 05-31 03:47
PROVIDERS: Emergency Medicine; Hospitalist; Internal Medicine; Internal Medicine Nephrology; Nurse Practitioner; Nurse Practitioner Family; Specialist; ADMIT Internal Medicine; ATTEND Internal Medicine
DX: A41.9 Sepsis, unspecified organism (principal); K85.80 Other acute pancreatitis without necrosis or infection; L89.154 Pressure ulcer of sacral region, stage 4; E43 Unspecified severe protein-calorie malnutrition; G92 Toxic encephalopathy; N17.0 Acute kidney failure with tubular necrosis; J96.00 Acute respiratory failure, unspecified whether with hypoxia or hypercapnia; I48.20 Chronic atrial fibrillation, unspecified; I50.22 Chronic systolic (congestive) heart failure; N39.0 Urinary tract infection, site not specified; E87.0 Hyperosmolality and hypernatremia; M86.8X8 Other osteomyelitis, other site; I42.9 Cardiomyopathy, unspecified; L03.90 Cellulitis, unspecified; I82.622 Acute embolism and thrombosis of deep veins of left upper extremity; R65.10 Systemic inflammatory response syndrome (SIRS) of non-infectious origin without acute organ dysfunction; F32.9 Major depressive disorder, single episode, unspecified; I25.10 Atherosclerotic heart disease of native coronary artery without angina pectoris; G47.33 Obstructive sleep apnea (adult) (pediatric); I11.0 Hypertensive heart disease with heart failure; F03.90 Unspecified dementia, unspecified severity, without behavioral disturbance, psychotic disturbance, mood disturbance, and anxiety; I48.0 Paroxysmal atrial fibrillation; E86.0 Dehydration; F41.1 Generalized anxiety disorder; E87.6 Hypokalemia; D72.12 Drug rash with eosinophilia and systemic symptoms syndrome; I95.9 Hypotension, unspecified; Z20.822 Contact with and (suspected) exposure to COVID-19; Z86.16 Personal history of COVID-19; Z51.5 Encounter for palliative care; Z66 Do not resuscitate; Z79.01 Long term (current) use of anticoagulants; Z79.82 Long term (current) use of aspirin; Z88.1 Allergy status to other antibiotic agents; Z79.899 Other long term (current) drug therapy; Z88.0 Allergy status to penicillin; Z88.5 Allergy status to narcotic agent; Z93.3 Colostomy status
CPT/HCPCS: 10045; 10078; 10081; 27000; 32100